=== PATIENT | male | born 1965 | race Caucasian/White ===

== ENCOUNTER 2017-02-16 08:00 | Inpatient (IN) | payer OTHER ==
--- NOTE | 2017-02-10 14:03 | HP ---
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: Yes: Peripheral Neuropathy Cardiovascular: Yes: CAD (POSITIVE STRESS TEST 2013), HTN, Hyperlipdemia Pulmonary: Yes: COPD Gastrointestinal: Yes: GERD Musculoskeletal: Yes: Osteoarthritis Endocrine: Yes: Diabetes Mellitus - Current Medications Current Medications: Home Medications Medication Instructions Recorded Divalproex [Depakote -] 250 mg PO BID 11/25/13 Gabapentin [Neurontin] 600 mg PO TID 11/25/13 Insuln Asp Prt/Insulin Aspart 25 unit SQ ACDIN 11/25/13 [Novolog Mix 70-30 Flexpen Syrn] Insuln Asp Prt/Insulin Aspart 40 unit SQ ACBK 11/25/13 [Novolog Mix 70-30 Flexpen Syrn] Quetiapine Fumarate [Seroquel -] 300 mg PO BID 11/25/13 Trazodone HCl [Desyrel -] 300 mg PO HS 11/25/13 Dexlansoprazole [Dexilant] 60 mg PO DAILY 02/04/17 Risperidone [Risperdal] 3 mg PO DAILY 02/04/17 Satellite Physical Exam - Physical Examination General Appearance: Well Nourished, Well Developed, Alert & Oriented x3 ENT: Clear Lung: Normal air movement Heart: Regular rate & rhythm Extremities: Other (left knee- + swelling, + ttp, decr rom, nvi xrays show severe tricompartmental djd) Neurological: Intact, Alert, Oriented Satellite Impression/Plan - Impression/Plan Impression: left knee djd Operative Procedure: left kevin tkr Date to be Performed: 02/16/17
[2017-02-16] MEDS ORDERED: TRANEXAMIC ACID 1000 MG/10 ML VIAL IVPUSH ONE (10:30)
[2017-02-16] MEDS ORDERED: CEFAZOLIN 1 GM/D5W 50 ML IVPB ONE (10:30)
[2017-02-16] MEDS ORDERED: GABAPENTIN 300 MG CAPSULE (FP) PO ONE (10:30)
[2017-02-16] MEDS ORDERED: CELECOXIB 200 MG CAPSULE PO ONE (10:30)
[2017-02-16] MEDS ORDERED: oxyCODONE HCL 10 MG SUSTAINED ACTING TABLET PO ONE (10:30)
[2017-02-16 11:17] VITALS: BMI 42.0
[2017-02-16] MEDS ORDERED: SODIUM CHLORIDE 0.9% P/F 10 ML VIAL IJ ONE (11:33)
[2017-02-16] MEDS ORDERED: BUPIVACAINE HCL/PF (5 MG/ML) 30 ML VIAL IJ ONE (11:33)
[2017-02-16] MEDS ORDERED: DEXAMETHASONE SOD PHOSPHATE/PF 10 MG/ML SDV ONE (11:33)
[2017-02-16] MEDS ORDERED: MIDAZOLAM HCL 2 MG/2 ML SINGLE DOSE VIAL ONE (11:33)
[2017-02-16] MEDS ORDERED: VANCOMYCIN 1,000 MG VIAL (RESTRICTED TO ID ONLY) ONE (12:19)
[2017-02-16] MEDS ORDERED: ceFAZolin SODIUM 1 GM VIAL ONE ×2 (12:19→13:42)
[2017-02-16] MEDS ORDERED: ONDANSETRON 4 MG/2 ML VIAL ONE (13:09)
[2017-02-16] MEDS ORDERED: TRANEXAMIC ACID 1000 MG/10 ML VIAL ONE (13:09)
[2017-02-16] MEDS ORDERED: DEXAMETHASONE SOD PHOSPHATE 4 MG/1 ML VIAL ONE (13:09)
[2017-02-16] MEDS ORDERED: PROPOFOL 20 ML ONE ×4 (13:37→15:41)
[2017-02-16] MEDS ORDERED: LABETALOL HCL 5 MG/1 ML (100MG/20 ML VIAL) ONE (14:15)
[2017-02-16] MEDS ORDERED: ONDANSETRON 4 MG/2 ML VIAL IVPUSH PRN (15:49)
--- NOTE | 2017-02-16 15:59 | OP ---
Operative Note - Note: Operative Date: 02/16/17 Pre-Operative Diagnosis: Left knee djd Operation: PANCHO left TKR Post-Operative Diagnosis: Same as Pre-op Surgeon: Richie Card Dry Heat Room Attendant: Jarek Aranda Anesthesiologist/POSTAL SUPERVISOR: Joel Crews Anesthesia: Spinal Estimated Blood Loss (mls): 150 Fluid Volume Replaced (mls): 1,000 Operative Report Dictated: Yes
[2017-02-16] MEDS ORDERED: ACETAMINOPHEN 325 MG TABLET (FP) PO SCH (16:00)
--- NOTE | 2017-02-16 16:00 | SURG ---
Surgery Field Service Rep Note Field Service Rep: Jarek Aranda PA-C Date of Service: 02/16/17 Diagnosis: Left knee djd Procedure: PANCHO left total knee replacement I was present for the entirety of the operative procedure. For further detail, please refer to operative report. Visit type - Case Type Case Type: Scheduled Admission - New patient This patient is new to me today: Yes Date on this admission: 02/16/17
[2017-02-16] MEDS ORDERED: ONDANSETRON 4 MG/2 ML VIAL IVPB PRN (16:01)
[2017-02-16] MEDS ORDERED: MAG HYDROX/AL HYDROX/SIMETH 30 ML UNIT-DOSE CUP PO PRN (16:01)
[2017-02-16] MEDS ORDERED: LACTATED RINGERS SOLUTION 1,000 ML IV SCH (16:15)
[2017-02-16] MEDS: HYDROmorphone HCL CARPU-JECT 1 MG/1 ML DISP.SYRIN ONE ×2 (16:23→16:28)
[2017-02-16] MEDS: ACETAMINOPHEN 1000 MG/100 ML VIAL (NON FORMULARY) IVPB ONE ×2 (16:40→17:23)
[2017-02-16] MEDS: KETOROLAC TROMETHAMINE 30 MG/1 ML VIAL IVPUSH ONE ×2 (16:45→17:23)
[2017-02-16] MEDS ORDERED: HYDROmorphone HCL CARPU-JECT 1 MG/1 ML DISP.SYRIN IVPUSH PRN (16:53)
[2017-02-16] MEDS: LACTATED RINGERS SOLUTION 1,000 ML IV SCH (17:21)
[2017-02-16] MEDS: INSULIN (NOVOLOG MIX 70/30) 100 UNITS/ML MDV SQ SCH (17:28)
[2017-02-16] MEDS: INSULIN SLIDING SCALE (NOVOLOG) 1 VIAL SQ SCH ×2 (17:28→22:34)
[2017-02-16] MEDS: oxyCODONE HCL 5 MG TABLET PO PRN (18:25)
[2017-02-16] MEDS ORDERED: traZODone HCL 150 MG TABLET PO SCH (22:00)
[2017-02-16] MEDS ORDERED: QUEtiapine FUMARATE 100 MG TABLET (FP) ONE (22:14)
[2017-02-16] MEDS: CELECOXIB 200 MG CAPSULE PO SCH (22:21)
[2017-02-16] MEDS: ASPIRIN 325 MG TABLET PO SCH (22:21)
[2017-02-16] MEDS: CEFAZOLIN 2 GM/D5W 50 ML IVPB SCH (22:21)
[2017-02-16] MEDS: DIVALPROEX SODIUM 250 MG TABLET E.C. (FP) PO SCH (22:22)
[2017-02-16] MEDS: GABAPENTIN 300 MG CAPSULE (FP) PO SCH (22:22)
[2017-02-16] MEDS: ASCORBIC ACID 500 MG TABLET (FP) PO SCH (22:23)
[2017-02-16] MEDS: SENNOSIDES/DOCUSATE COMBO (SENNA PLUS) TABLET (UD) PO SCH (22:23)
[2017-02-16] MEDS: QUEtiapine FUMARATE 300 MG TABLET PO SCH (22:23)
[2017-02-16] MEDS: ACETAMINOPHEN 325 MG TABLET (FP) PO SCH (22:24)
[2017-02-16] MEDS ORDERED: INSULIN (NOVOLOG) ASPART 100 UNITS/ML 10ML VIAL ONE (22:33)
[2017-02-17] MEDS: ACETAMINOPHEN 325 MG TABLET (FP) PO SCH ×4 (03:33→21:29)
[2017-02-17] MEDS: GABAPENTIN 300 MG CAPSULE (FP) PO SCH ×3 (06:30→21:10)
[2017-02-17] MEDS: CEFAZOLIN 2 GM/D5W 50 ML IVPB SCH (06:31)
[2017-02-17] MEDS: oxyCODONE HCL 5 MG TABLET PO PRN ×3 (06:31→20:13)
[2017-02-17] MEDS: INSULIN SLIDING SCALE (NOVOLOG) 1 VIAL SQ SCH ×4 (06:32→21:29)
[2017-02-17] MEDS: INSULIN (NOVOLOG MIX 70/30) 100 UNITS/ML MDV SQ SCH ×2 (06:33→16:07)
[2017-02-17 08:45] LABS: MCH 31.6 pg (25.7-33.7); MCHC 35.1 g/dl (32.0-35.9); MEAN CELL VOLUME 90.1 fl (80-96); MEAN PLT VOLUME 9.8 fl (7.5-11.1); PLATELET COUNT 155 K/MM3 (134-434); RDW 11.8 % (11.9-15.9); WHITE BLOOD COUNT 11.8 K/mm3 (4.0-10.8)
[2017-02-17 08:54] LABS: ANION GAP 5 (8-16); CALCIUM 8.4 mg/dl (8.4-10.2); CO2 31 mmol/L (22-28); GLUCOSE,RANDOM 230 mg/dl (74-106)
[2017-02-17] MEDS ORDERED: QUEtiapine FUMARATE 100 MG TABLET (FP) ONE (09:22)
[2017-02-17] MEDS: ASCORBIC ACID 500 MG TABLET (FP) PO SCH ×2 (09:27→21:11)
[2017-02-17] MEDS: MULTIVITAMINS (DAILY MVI) TABLET (FP) PO SCH (09:27)
[2017-02-17] MEDS: SENNOSIDES/DOCUSATE COMBO (SENNA PLUS) TABLET (UD) PO SCH ×2 (09:27→21:09)
[2017-02-17] MEDS: PANTOPRAZOLE 40 MG TABLET (FP) PO SCH (09:27)
[2017-02-17] MEDS: CELECOXIB 200 MG CAPSULE PO SCH ×2 (09:27→21:09)
[2017-02-17] MEDS: DIVALPROEX SODIUM 250 MG TABLET E.C. (FP) PO SCH ×2 (09:28→21:08)
[2017-02-17] MEDS: QUEtiapine FUMARATE 300 MG TABLET PO SCH (09:28)
[2017-02-17] MEDS: ASPIRIN 325 MG TABLET PO SCH ×2 (09:28→21:10)
[2017-02-17] MEDS ORDERED: PATIENT'S OWN MEDICATION (NON-FORMULARY) (Dexlansoprazole [Dexilant] 60 MG) PO SCH (10:00)
[2017-02-17] MEDS ORDERED: QUEtiapine FUMARATE 100 MG TABLET (FP) PO SCH (10:00)
[2017-02-17] MEDS ORDERED: risperiDONE 3 MG TABLET PO SCH (10:00)
--- NOTE | 2017-02-17 10:18 | PN ---
Progress Note (short form) - Note Progress Note: ANESTHESIOLOGY POSTOP: 51 yo male POD #1 s/p L TKA. Patient ambulating with walker. C/O pain sometimes 9/10. Patient gets adequate relief with medications. Tolerating PO. Continue current care. Encouraged patient to actively participate in PT and continue to use IS bedside.
--- NOTE | 2017-02-17 12:02 | OPR ---
AVSS COMFORTABLE AQUACEL DRESSING CLEAN AND DRY CALF SOFT AND NT NVI PROM 0-90 + ABILITY TO STRAIGHT LEG RAISE IMP: DOING WELL PLAN: PT, DC TOMORROW
[2017-02-17] MEDS ORDERED: INSULIN (NOVOLOG) ASPART 100 UNITS/ML 10ML VIAL ONE ×2 (16:00→21:15)
[2017-02-17] MEDS ORDERED: REFRIGERATED ANITBIOTICS ONE (16:02)
[2017-02-17] MEDS: LACTATED RINGERS SOLUTION 1,000 ML IV SCH (16:06)
[2017-02-17] MEDS: QUEtiapine FUMARATE 100 MG TABLET (FP) PO SCH (21:10)
[2017-02-17] MEDS ORDERED: traZODone HCL 50 MG TABLET (FP) PO SCH (22:00)
[2017-02-18] MEDS: oxyCODONE HCL 5 MG TABLET PO PRN ×4 (00:11→08:45)
[2017-02-18] MEDS: ACETAMINOPHEN 325 MG TABLET (FP) PO SCH ×2 (04:19→10:46)
[2017-02-18] MEDS: GABAPENTIN 300 MG CAPSULE (FP) PO SCH (06:05)
[2017-02-18] MEDS ORDERED: REFRIGERATED ANITBIOTICS ONE (06:10)
[2017-02-18] MEDS: INSULIN SLIDING SCALE (NOVOLOG) 1 VIAL SQ SCH (06:11)
[2017-02-18] MEDS: INSULIN (NOVOLOG MIX 70/30) 100 UNITS/ML MDV SQ SCH (06:11)
[2017-02-18 09:10] VITALS: BP 142/74; PULSE 102; TEMP 98.5
[2017-02-18 09:17] LABS: MCH 30.9 pg (25.7-33.7); MCHC 34.5 g/dl (32.0-35.9); MEAN CELL VOLUME 89.4 fl (80-96); MEAN PLT VOLUME 8.8 fl (7.5-11.1); PLATELET COUNT 154 K/MM3 (134-434); RDW 11.9 % (11.9-15.9); WHITE BLOOD COUNT 12.5 K/mm3 (4.0-10.8)
[2017-02-18] MEDS ORDERED: risperiDONE 1 MG TABLET (FP) PO SCH (10:00)
[2017-02-18] MEDS: DIVALPROEX SODIUM 250 MG TABLET E.C. (FP) PO SCH (10:44)
[2017-02-18] MEDS: CELECOXIB 200 MG CAPSULE PO SCH (10:44)
[2017-02-18] MEDS: ASPIRIN 325 MG TABLET PO SCH (10:44)
[2017-02-18] MEDS: QUEtiapine FUMARATE 100 MG TABLET (FP) PO SCH (10:45)
[2017-02-18] MEDS: MULTIVITAMINS (DAILY MVI) TABLET (FP) PO SCH (10:45)
[2017-02-18] MEDS: ASCORBIC ACID 500 MG TABLET (FP) PO SCH (10:45)
[2017-02-18] MEDS: SENNOSIDES/DOCUSATE COMBO (SENNA PLUS) TABLET (UD) PO SCH (10:45)
[2017-02-18] MEDS: PANTOPRAZOLE 40 MG TABLET (FP) PO SCH (10:45)
--- NOTE | 2017-02-18 10:50 | OP ---
DATE OF OPERATION: 02/16/2017 PREOPERATIVE DIAGNOSIS: Degenerative joint disease, left knee. POSTOPERATIVE DIAGNOSIS: Degenerative joint disease, left knee. PROCEDURE: Left total knee replacement with robotic-assisted navigation (MAKOplasty). SURGICAL ATTENDING: Richie Card MD SILO PAINTER: JOVITA Macias ANESTHESIA: Regional and spinal. CLOSURE: A cemented Triathlon knee system with a 5 femur with a small extension, a 6 tibia with a small extension, an 11-mm TS insert, and a 35 patella; No. 1 Vicryl fascia, 0 and 2-0 subcutaneous, and 3-0 Monocryl subcuticular, with skin glue for skin. ESTIMATED BLOOD LOSS: Negligible. TOURNIQUET TIME: Approximately 80 minutes. COMPLICATIONS: None. CONDITION: Recovery room in stable condition. DESCRIPTION OF OPERATIVE PROCEDURE: Patient was taken to the operating room on February 16, 2017. Spinal and regional anesthesia were administered by the anesthesiologist. IV Kefzol and TXA were administered prophylactically prior to the case. A well-padded pneumatic tourniquet was placed on the left proximal thigh. The left lower extremity was prepped and draped in the usual sterile fashion. The leg was exsanguinated with an Esmarch bandage. Tourniquet was inflated to 275 mmHg. A 12-to-15-cm longitudinal midline incision centered over the patella was incised. Hemostasis was achieved using Bovie cautery. Sharp dissection was carried down to the level of the extensor mechanism which was mediolaterally to perform the procedure. A medial parapatellar arthrotomy was then performed using a 10 blade. The patella was inverted. The knee was flexed up. Subperiosteal dissection was done in the anterior medial proximal tibia until the knee was able to be brought forward. This was facilitated by taking the menisci and anterior and posterior cruciate ligaments. Partial fat pad excision was performed as well. Checkpoints were malleted in both the femur and the tibia. Two bicortical pins were placed in the distal femur through the incision proximal to the knee, and 2 pins were placed through small stab incisions 1 handbreadth below the tibial tubercle and drilled into place, engaging the second cortex. To these, pins were fastened to the navigation arrays. The knee was then registered with the navigation device by center of rotation of the hip, medial and lateral malleoli, and multiple points on both the tibia and the femur. Confirmation of excellent registration was confirmed by "popping the bubbles." Osteophytes throughout the knee were debrided using the rongeur and the osteotomes. Gaps were then ascertained in both extension and flexion with varus and valgus stress. Due to taking a lot of the osteophytes medially, there was some looseness to the medial MCL. It was thus decided to use a TS implant, especially with the patient being very large. Small extensions were also decided to use on both the femur and the tibia. The box was made on the femur, and a hole was drilled in the tibia for placement of the short extension. Trial component was applied. A number 6 size 11 thickness polyethylene trial and baseplate were allowed to "find itself." They were then clipped into place. Confirmation of excellent rotation of the tibial component was confirmed using the navigation. This was clipped into place and marked for later use. The patella was calipered for thickness and then osteotomized to the appropriate level. A 35 lollipop was used to drill the lug holes in the patella, and a trial was applied. Knee was taken through a range of motion, found to go from full extension to full flexion with excellent tracking of the patella and good stability. The trial components were removed. The keel was made. The real components were then cemented in using modern instrumentation cement techniques with antibiotic cement. They were pressurized in extension. After the cement was hardened, the knee was thoroughly inspected to remove all excess cement. The real TS implant was then clipped into place. Range of motion, stability, and tracking was described earlier to be excellent throughout. Knee was pulse-antibiotic irrigated. Vancomycin powder was then placed, and the medial parapatellar arthrotomy was then closed using No. 1 Vicryl interrupted suture. Post closure, the knee was taken through a range of motion and found to have good tracking of the patella with no undue tension on the repair. The subcutaneous was post-antibiotic irrigated. The subcutaneous was closed with 0 and 2-0, and 3-0 Monocryl subcuticular with skin glue for skin, 4-0 undyed Vicryl for the pin site after it was post antibiotic irrigated. A sterile pressure dressing, followed by an Aquacel dressing and a Vargas dressing was applied. Tourniquet was deflated. Total tourniquet time was approximately 80 minutes. No complications. Estimated blood loss negligible. Janki PERRY/[id number]
--- NOTE | 2017-02-18 15:19 | PATH ---
Surgical Pathology Report Patient Name: JAYNE HERNADEZ Med. Rec. #: [id number] /Age/Gender: 1965 (Age: 51) / M Account: [id number] Location: [facility] MED-SURG Taken: 02/16/2017 Received: 02/16/2017 Reported: 02/18/2017 Physicians: Richie Card M.D. Specimen(s) Received LEFT KNEE BONES Clinical History Left knee osteoarthritis Final Diagnosis BONE AND SOFT TISSUE, LEFT KNEE, REPLACEMENT: DEGENERATIVE JOINT DISEASE. Electronically Signed Anil Mcwilliams M.D. Gross Description Received in formalin labeled "left knee bones," is a 14.5 x 13.0 x 2.0 cm aggregate of multiple tran, irregular portions of bone and soft tissue. The tibial plateau measures 8.0 x 5.6 x 1.8 cm. There are no areas of eburnation identified. The articular surfaces are tran-yellow and diffusely granular. The underlying trabecular bone is yellow and hard. Nursing Service Administrator sections are submitted in one cassette, following decalcification. 02/17/201702/17/2017
== END 2017-02-18 11:40 | disposition home health service (06) | DRG 470 ==
LOC: FM/S 10:09 → UNDOADMIN 10:09
PROVIDERS: ADMIT Orthopaedic Surgery; ATTEND Orthopaedic Surgery
PROC: 8E0Y0CZ Robotic Assisted Procedure of Lower Extremity, Open Approach (ICD-10-PCS; 2017-02-16)
PROC: 0SRD0J9 Replacement of Left Knee Joint with Synthetic Substitute, Cemented, Open Approach (ICD-10-PCS; principal; 2017-02-16 14:01)
DX: M17.12 Unilateral primary osteoarthritis, left knee (principal); I25.10 Atherosclerotic heart disease of native coronary artery without angina pectoris; I10 Essential (primary) hypertension; E78.5 Hyperlipidemia, unspecified; E11.42 Type 2 diabetes mellitus with diabetic polyneuropathy; J44.9 Chronic obstructive pulmonary disease, unspecified; K21.9 Gastro-esophageal reflux disease without esophagitis
CPT/HCPCS: 36415; 73560-TC-LT; 80048; 85027; 88304-TC; 88311-TC; 94760; 97116-GP; 97162-GP; J2794

== ENCOUNTER 2017-02-19 21:38 | Emergency (ER) | payer OTHER ==
--- NOTE | 2017-02-19 22:01 | PDOC ---
History of Present Illness - General Stated Complaint: OVERDOSE Time Seen by Provider: 02/19/17 22:00 - History of Present Illness Initial Comments: 51 year old male with PMH diabetes, BPD, HTN, and s/p recent total knee replacement yesterday presenting for potential percocet overdose. Patient was home earlier today when his mother noticed he was slightly more somnolent than usual. He had taken 12 percocets from 13:00 on 02/18/17 20:00 at 02/19/17. The mother stated that he was responsive but very sleepy. The patient denies any issues. Denies constipation, SOB, chest pain, nausea, vomiting, or any other symptoms. He was somnolent but arrousable during our interview. He hasn't taken any other pain medications and states that he took so many percocets because the label indicated he could take up to 6 per day. 02/19/17 23:11 Past History - Past Medical History Allergies/Adverse Reactions: Allergies Allergy/AdvReac Type Severity Reaction Status Date / Time haloperidol [From Haldol] Allergy Severe MUSCLE Verified 02/19/17 23:03 SPASMS haloperidol lactate AdvReac Severe MUSCLE Verified 02/19/17 23:03 [From Haldol] SPASMS Home Medications: Ambulatory Orders Divalproex [Depakote -] 250 mg PO BID 11/25/13 Gabapentin [Neurontin] 600 mg PO TID 11/25/13 Insuln Asp Prt/Insulin Aspart [Novolog Mix 70-30 Flexpen Syrn] 25 unit SQ ACDIN 11/25/13 Insuln Asp Prt/Insulin Aspart [Novolog Mix 70-30 Flexpen Syrn] 40 unit SQ ACBK 11/25/13 Quetiapine Fumarate [Seroquel -] 300 mg PO BID 11/25/13 Trazodone HCl [Desyrel -] 300 mg PO HS 11/25/13 Dexlansoprazole [Dexilant] 60 mg PO DAILY 02/04/17 Risperidone [Risperdal] 3 mg PO DAILY 02/04/17 Oxycodone HCl/Acetaminophen [Percocet 5-325 mg Tablet -] 1 - 2 tab PO Q6H #60 tab MDD 6 02/17/17 Anemia: No Asthma: No Cancer: Yes (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.) Cardiac Disorders: No CVA: No COPD: No CHF: No Dementia: No Diabetes: Yes (IDDM OVER 10 YEARS) GI Disorders: No Disorders: No HTN: No Hypercholesterolemia: No Liver Disease: No Psychiatric Problems: Yes (BIPOLAR) Suicide Attempt (Hx): No Seizures: No Thyroid Disease: No - Surgical History Abdominal Surgery: No Appendectomy: Yes Cardiac Surgery: No Cholecystectomy: No Lung Surgery: No Neurologic Surgery: No Orthopedic Surgery: No - Immunization History Immunization Up to Date: Yes - Psycho/Social/Smoking Cessation Hx Anxiety: Yes Suicidal Ideation: No Smoking History: Current some day smoker Have you smoked in the past 12 months: Yes Number of Cigarettes Smoked Daily: 1 Cigars Per Day: 1 'Breaking Loose' booklet given: 02/28/15 Hx Alcohol Use: Yes (OCCASIONALLY) Drug/Substance Use Hx: No Substance Use Type: Alcohol Hx Substance Use Treatment: No Review of Systems - Review of Systems Constitutional: No: Chills, Diaphoresis, Fever, Loss of Appetite, Malaise HEENTM: No: Blurred Vision, Tearing, Recent change in vision Respiratory: No: Cough, Shortness of Breath, SOB with Exertion Cardiac (ROS): No: Chest Pain, Edema, Irregular Heart Rate ABD/GI: No: Constipated, Diarrhea, Nausea, Poor Appetite, Poor Fluid Intake : No: Burning, Dysuria, Discharge Musculoskeletal: Yes: Joint Pain, Joint Swelling, Joint Stiffness Neurological: No: Headache, Numbness, Paresthesia *Physical Exam - Physical Exam General Appearance: Yes: Appropriately Dressed, Other (somnolent but arrousable) . No: Apparent Distress, Disheveled HEENT: positive: EOMI, JERRELL, Normal ENT Inspection Neck: positive: Normal Thyroid, Supple. negative: Tender, Rigid Respiratory/Chest: positive: Lungs Clear, Normal Breath Sounds, Respiratory Distress, Accessory Muscle Use, Other (No signs of respiratory depression or concerning secretions.). negative: Chest Tender Cardiovascular: positive: Regular Rhythm, Regular Rate, S1, S2. negative: Edema , JVD, Murmur Gastrointestinal/Abdominal: positive: Normal Bowel Sounds, Flat, Soft. negative : Tender, Organomegaly Musculoskeletal: positive: Other Extremity: positive: Other (Clean, dry, and intact site of knee arthroplasty.) Integumentary: positive: Normal Color, Dry, Warm. negative: Cyanotic Neurologic: positive: Fully Oriented, Alert, Other (Somnolent but arrousable) Medical Decision Making - Medical Decision Making 51 year old diabetic s/p recent TKR with concern for prescription percocet overdose. He has taken 3900 MG of acetaminophen over 28 hours without any episode of supra-therapeutic single dosage. His last dose was at 20:00 on . He is somnolent but arrousable and not exhibiting signs of respiratory depression. Per conversation with poison control at 23:00, it is not likely that he would have a Tylenol or percocet overdose given his lack of supratherapaeutic ingestion and less than 3G daily ingestion. They suggested sending tylenol level if we were concerned and/or cmp but it is not indicated given the tylenol dosage level. Sent CMP, CBC, and Tylenol level. 02/20/17 00:00 Labs pending and patient signed out to Dr. Baca in stable condition. *DC/Admit/Observation/Transfer Diagnosis at time of Disposition: Somnolence - Discharge Dispostion Disposition: HOME Condition at time of disposition: Improved - Referrals Referrals: Wes Worthy MD [Primary Care Provider] -
[2017-02-19 23:03] VITALS: BMI 45.6
--- NOTE | 2017-02-19 23:13 | PDOC ---
Attending Attestation - Resident Resident Name: Esthela Garduno - ED Attending Attestation I have performed the following: I have examined & evaluated the patient, The case was reviewed & discussed with the resident, I agree w/resident's findings & plan, Exceptions are as noted - HPI HPI: 02/19/17 23:11 51 year old male with past medical history of hypertension, diabetes, diabetic neuropathy, lymphoma, bipolar disorder, degenerative disc disease status post total left knee replacement yesterday by Dr. Card presents with potential overdose. The patient was having pain after his knee surgery yesterday. Since 1 PM yesterday, the patient has taken 12 tablets of Percocet. Patient is no complaints but has been drowsy. The patient's mother was concerned and brought the patient the ED. - Physicial Exam PE: 02/19/17 23:12 GENERAL: Awake, alert, and fully oriented, in no acute distress. HEAD: No signs of trauma EYES: PERRLA, EOMI, sclera anicteric, conjunctiva clear ENT: Auricles normal inspection, hearing grossly normal, nares patent, oropharynx clear without exudates. NECK: Normal ROM, supple, no lymphadenopathy, JVD, or masses LUNGS: Breath sounds equal, clear to auscultation bilaterally. No wheezes, and no crackles HEART: Regular rate and rhythm, normal S1 and S2, no murmurs, rubs or gallops ABDOMEN: Soft, nontender, normoactive bowel sounds. No guarding, no rebound. No masses EXTREMITIES: Normal range of motion, no edema. No clubbing or cyanosis. No cords, erythema, or tenderness LLE: s/p left knee replacement. Bandage overlying with no erythema or drainage. NEUROLOGICAL: Cranial nerves II through XII grossly intact. Normal speech, normal gait SKIN: Warm, Dry, normal turgor, no rashes or lesions noted. - Medical Decision Making 02/19/17 23:13 The patient appears mildly drowsy but alert and communicative. Unlikely to have OD on tylenol. No concerns for airway pathology. Poison Control Center contacted. Stated to observe the patient and if LFTs unremarkable, pt can be d/c'd. Labs and reassess. 02/20/17 01:16 CBC, BMP 02/19/17 23:15 02/19/17 23:15 CMP Sodium 138 mmol/L (136-145) 02/19/17 23:15 Potassium 3.7 mmol/L (3.5-5.1) 02/19/17 23:15 Chloride 97 mmol/L (98-107) L 02/19/17 23:15 Carbon Dioxide 33 mmol/L (21-32) H 02/19/17 23:15 Anion Gap 8 (8-16) 02/19/17 23:15 BUN 11 mg/dL (7-18) 02/19/17 23:15 Creatinine 0.9 mg/dL (0.7-1.3) 02/19/17 23:15 Creat Clearance w eGFR > 60 (>60) 02/19/17 23:15 POC Glucometer 199.68116 UNITS (()) 02/19/17 22:38 Random Glucose 202 mg/dL (74-106) H 02/19/17 23:15 Calcium 8.7 mg/dL (8.5-10.1) 02/19/17 23:15 Total Bilirubin 0.7 mg/dL (0.2-1.0) D 02/19/17 23:15 AST 23 U/L (15-37) D 02/19/17 23:15 ALT 32 U/L (12-78) D 02/19/17 23:15 Alkaline Phosphatase 46 U/L (45-117) D 02/19/17 23:15 Total Protein 7.0 g/dl (6.4-8.2) 02/19/17 23:15 Albumin 3.1 g/dl (3.4-5.0) L 02/19/17 23:15 Acetaminophen level undetectable. Pt cleared for D/c. Heart Score/ECG Review #1 ECG reviewed & interpreted by me at: 00:55 02/20/17 00:57 NSR 97, RBBB, LAFB, no std/carlos, QTC 480 msec, +LVH
--- NOTE | 2017-02-20 00:08 | PDOC ---
*Physical Exam - Vital Signs Last Vital Signs Temp Pulse Resp BP Pulse Ox 97.8 F 94 H 22 142/86 98 02/19/17 21:45 02/19/17 21:45 02/19/17 21:45 02/19/17 21:45 02/19/17 21:45 ED Treatment Course - LABORATORY CBC & Chemistry Diagram: 02/19/17 23:15 02/19/17 23:15 - ADDITIONAL ORDERS Additional order review: Laboratory Results 02/19/17 22:38 POC Glucometer 199.51522 02/19/17 22:38 POC Glucometer 199.32931 Medical Decision Making - Medical Decision Making 02/20/17 00:[address] Garduno. Plan to watch tylenol levels and watch for levels above 10. Will consider NAC if greater than 10 or ALT/AST elevated; otherwise will monitor for another 2 hours and discharge to home. 02/20/17 01:20 Patient's levels in safe range. Will discharge to home. 02/20/17 01:31 *DC/Admit/Observation/Transfer Diagnosis at time of Disposition: Somnolence - Discharge Dispostion Disposition: HOME Condition at time of disposition: Improved - Referrals Referrals: Wes Worthy MD [Primary Care Provider] - - Patient Instructions - Post Discharge Activity - Attestations Physician Attestion: 02/20/17 01:21 I, Dr. Memo Bolden, attest that this document has been prepared under my direction and personally reviewed by me in its entirety. I further attest, that it accurately reflects all work, treatment, procedures and medical decision -making performed by me.
[2017-02-20 00:12] LABS: BASOPHIL 0.5 % (0-2.0); EOSINOPHIL 0.7 % (0-4.5); MCH 30.3 pg (25.7-33.7); MCHC 33.4 g/dl (32.0-35.9); MEAN CELL VOLUME 90.7 fl (80-96); MEAN PLT VOLUME 9.9 fl (7.5-11.1); NEUTROPHILS 70.5 % (42.8-82.8); PLATELET COUNT 141 K/MM3 (134-434); RDW 12.9 % (11.9-15.9); WHITE BLOOD COUNT 7.5 K/mm3 (4.0-10.0)
[2017-02-20 00:31] LABS: URINE MARIJUANA THC POSITIVE ng/ml (CUTOFF=50)
[2017-02-20 00:44] LABS: ALBUMIN 3.1 g/dl (3.4-5.0); ANION GAP 8 (8-16); CALCIUM 8.7 mg/dL (8.5-10.1); CO2 33 mmol/L (21-32); CREATININE 0.9 mg/dL (0.7-1.3); GLUCOSE,RANDOM 202 mg/dL (74-106); SGOT/AST 23 U/L (15-37); SGPT/ALT 32 U/L (12-78)
[2017-02-20 00:46] LABS: ALK PHOS 46 U/L (45-117); BILIRUBIN,TOTAL 0.7 mg/dL (0.2-1.0)
[2017-02-20 02:49] VITALS: BP 121/78; PULSE 88; TEMP 98.1
--- NOTE | 2017-02-22 09:28 | EKG ---
Test Reason : Blood Pressure : / mmHG Vent. 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
== END 2017-02-20 03:08 | disposition home or self-care (01) ==
LOC: JER 21:38
DX: T39.1X4A Poisoning by 4-Aminophenol derivatives, undetermined, initial encounter (principal); R40.0 Somnolence; Y92.018 Other place in single-family (private) house as the place of occurrence of the external cause; E10.40 Type 1 diabetes mellitus with diabetic neuropathy, unspecified; Z79.4 Long term (current) use of insulin; F31.9 Bipolar disorder, unspecified; I10 Essential (primary) hypertension; Z96.652 Presence of left artificial knee joint
CPT/HCPCS: 36415; 80053; 80307; 85025; 93005; 93010; 99284-25

== ENCOUNTER 2017-10-27 06:25 | Inpatient (IN) | payer OTHER ==
[2017-10-27 06:49] VITALS: BMI 40.1
[2017-10-27 07:20] LABS: BASO % 0.3 % (0-2.0); EOS % 0.5 % (0-4.5); HEMATOCRIT 42.3 % (35.4-49); HEMOGLOBIN 14.5 GM/dL (11.7-16.9); LYMPH % 16.5 % (8-40); MCH 30.3 pg (25.7-33.7); MCHC 34.2 g/dl (32.0-35.9); MEAN CELL VOLUME 88.5 fl (80-96); MONO % 6.1 % (3.8-10.2); NEUT % 76.6 % (42.8-82.8); PLATELET COUNT 179 K/MM3 (134-434); RBC 4.78 M/mm3 (4.00-5.60); RDW 12.8 % (11.9-15.9)
[2017-10-27 07:30] LABS: INR 1.14 (0.82-1.09); PROTHROMBIN TIME (PATIENT) 12.9 SEC (9.98-11.88)
--- NOTE | 2017-10-27 07:37 | PDOC ---
History of Present Illness <Terrance Ledbetter - Last Filed: 10/27/17 10:29> - General History Source: Patient Exam Limitations: No Limitations - History of Present Illness Initial Comments: 10/27/17 08:30 The patient is a 51 year old male with a significant PMH of obesity, diabetes, HTN, and bipolar disorder who presents to the emergency department with generalized weakness and right sided rib pain s/p multiple falls since approximately 3AM this morning. He describes his rib pain as a constant, severe sensation that is worsened by movement.The patient reports waking up to smoke a cigar and feeling generally weak, after which he fell and hit his head and the right side of his chest. There is questionable LOC. The patient reports falling 2 more times prior to arrival, prompting his visit. The patients last known normal was at about 10:30PM last night. The patient denies shortness of breath, headache and dizziness. Denies fever, nausea, vomit, diarrhea and constipation. Denies dysuria, frequency, urgency and hematuria. Allergies: Haloperidol, Haloperidol lactate. Past surgical history: Total knee replacement surgery. Appendectomy. Social history: Current someday smoker. Occasional alcohol use. No reported drug use. PCP: Dr. 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.) Cardiac Disorders: No CVA: No COPD: No CHF: No Dementia: No Diabetes: Yes (IDDM OVER 10 YEARS) GI Disorders: No Disorders: No HTN: No Hypercholesterolemia: No Liver Disease: No Psychiatric Problems: Yes (BIPOLAR) Seizures: No Thyroid Disease: No - Surgical History Abdominal Surgery: No Appendectomy: Yes Cardiac Surgery: No Cholecystectomy: No Lung Surgery: No Neurologic Surgery: No Orthopedic Surgery: No - Immunization History Immunization Up to Date: Yes - Suicide/Smoking/Psychosocial Hx Smoking History: Never smoked Have you smoked in the past 12 months: No Number of Cigarettes Smoked Daily: 1 Cigars Per Day: 1 Information on smoking cessation initiated: No 'Breaking Loose' booklet given: 02/28/15 Hx Alcohol Use: No Drug/Substance Use Hx: No Substance Use Type: Alcohol Hx Substance Use Treatment: No <Terrance Ledbetter - Last Filed: 10/27/17 10:29> <Daniele Sharpe - Last Filed: 10/27/17 11:31> - Past Medical History Allergies/Adverse Reactions: Allergies Allergy/AdvReac Type Severity Reaction Status Date / Time haloperidol [From Haldol] Allergy Severe MUSCLE Verified 10/27/17 06:44 SPASMS haloperidol lactate AdvReac Severe MUSCLE Verified 10/27/17 06:44 [From Haldol] SPASMS Home Medications: Ambulatory Orders Divalproex [Depakote -] 250 mg PO BID 11/25/13 Gabapentin [Neurontin] 600 mg PO TID 11/25/13 Insuln Asp Prt/Insulin Aspart [Novolog Mix 70-30 Flexpen Syrn] 25 unit SQ ACDIN 11/25/13 Insuln Asp Prt/Insulin Aspart [Novolog Mix 70-30 Flexpen Syrn] 40 unit SQ ACBK 11/25/13 Quetiapine Fumarate [Seroquel -] 300 mg PO BID 11/25/13 Trazodone HCl [Desyrel -] 300 mg PO HS 11/25/13 Dexlansoprazole [Dexilant] 60 mg PO DAILY 02/04/17 Risperidone [Risperdal] 3 mg PO DAILY 02/04/17 Oxycodone HCl/Acetaminophen [Percocet 5-325 mg Tablet -] 1 - 2 tab PO Q6H #60 tab MDD 6 02/17/17 Review of Systems - Review of Systems Able to Perform ROS?: Yes Comments:: 10/27/17 08:31 GENERAL/CONSTITUTIONAL: (+) Generalized weakness. (+) Chills. No fever HEAD, EYES, EARS, NOSE AND THROAT: No change in vision. No ear pain or discharge. No sore throat. CARDIOVASCULAR: No chest pain or shortness of breath. RESPIRATORY: No cough, wheezing, or hemoptysis. GASTROINTESTINAL: No nausea, vomiting, diarrhea or constipation. GENITOURINARY: No dysuria, frequency, or change in urination. MUSCULOSKELETAL: (+) Right sided rib cage pain. No joint pain. No neck pain. SKIN: No rash NEUROLOGIC: (+) Questionable LOC. No headache or vertigo. ENDOCRINE: No increased thirst. No abnormal weight change. HEMATOLOGIC/LYMPHATIC: No anemia, easy bleeding, or history of blood clots. ALLERGIC/IMMUNOLOGIC: No hives or skin allergy. <Daniele Sharpe - Last Filed: 10/27/17 11:31> *Physical Exam - Vital Signs Last Vital Signs Temp Pulse Resp BP Pulse Ox 98.1 F 102 H 18 90/63 93 L 10/27/17 06:44 10/27/17 06:44 10/27/17 06:44 10/27/17 06:44 10/27/17 06:44 - Physical Exam Comments: 10/27/17 08:59 Patient was seen and evaluated 7 AM. On initial evaluation, patient is awake and alert, morbidly obese, wtih poor hygene; hypotensive, hopoxemic on RA, in mild distress; EXAMINATION HEAD: Normocephalic; atraumatic EYES: PERRL; EOM intact ENMT: External appears normal; normal oropharynx NECK: Supple; non-tender; no carotid bruits CARD: Normal S1, S2; no murmurs, rubs, or gallops RESP: Normal chest excursion with respiration; breath sounds clear and equal bilaterally; + subcutaneous emphysema appreciated on the right with bony crepitus at 5th rib ABD: Soft, non-distended; non-tender; no palpable organomegaly, no palpable hernias EXT: Normal passive ROM in all four extremities; non-tender to palpation; distal pulses intact SKIN: Warm, dry, no rash NEURO: Cranial nerves II through XII are grossly intact; right upper extremity/ left upper extremity: 5/5; left lower extremity: 4/5; right lower extremity: 3/5 ; babinsky positive on the right; <Terrance Ledbetter - Last Filed: 10/27/17 10:29> - Vital Signs Last Vital Signs Temp Pulse Resp BP Pulse Ox 98.1 F 102 H 18 90/63 93 L 10/27/17 06:44 10/27/17 06:44 10/27/17 06:44 10/27/17 06:44 10/27/17 06:44 <Daniele Sharpe - Last Filed: 10/27/17 11:31> NIH Stroke Scale - Last Known Well Date/Time & Onset Date Last Known Well: 10/26/17 Time Last Known Well: 10:30 - Initial Evaluation Level of consciousness: Not alert, but arousable with minimal stimulation Ask patient the month and their age: Answers both correctly Ask patient to open & close eyes; make fist and let go: Obeys both correctly Best gaze (horizontal eye movement): Normal Visual field testing: No visual field loss Facial paresis (Show teeth/raise eyebrows/close eyes tight): Normal symmetrical movement Motor Function: Left Arm: Normal Motor Function: Right Arm: Normal (extends arm 90 (or 45) degrees for 10 seconds without drift Motor Function: Left Leg: Drift Motor Function: Right Leg: Some effort against gravity Limb Ataxia: No ataxia Sensory(Use pinprick test arms,legs,trunk,face/side to side): Normal Best language (Describe picture, name items, read sentences): No Aphasia Dysarthria (read several words): Normal articulation Extinction and Inattention: No abnormality - Total Score NIH Stroke Scale Score: 4 <Terrance Ledbetter - Last Filed: 10/27/17 10:29> Heart Score/ECG Review #1 10/27/17 11:31 Vent rate 89 bpm Normal sinus rhythm Right bundle branch block Bifascicular block Voltage criteria for left ventricular hypertrophy Cannot rule out septal infarct, age undetermined Abnormal ECG <Daniele Sharpe - Last Filed: 10/27/17 11:31> Critical Care Time/MDM Note - Medical Decision Making Note: 10/27/17 09:03 Patient is a morbidly obese 51-year-old male with history of diabetes, bipolar disorder who presented to the ED after several falls earlier in the night. Patient reported that he was at his baseline state of health last at 10:30 pm on the night prior to arrival. on initial eval, pt was hypotensive and hypoxemic, improving after fluid rescus of 1500ml of NS and supplemental O2 at 4L/min via NC. physical eval reveals mild RLE weakness on isometric testing, bony crepitus and subq emphysema on the eval of right chest wall. ct of head shows no evidence of acute pathology. ct of cervical spine shows no fx/ dislocation. pt is not a tpa candidate due to unlknown onset of sxs and cta of brain was not obtained due to elevated cre c/w cronic venous insuff. case was discussed with Dr. Ceballos of neurology. he agrees with plan of care. will administer Aspirin-325mg, Lipitor. case disussed with Dr. Lyon of IR. Ptx is too small for chest tube at this moment. will monitor. will admit to icu. <Terrance Ledbetter - Last Filed: 10/27/17 10:29> - Medical Decision Making Note: 10/27/17 07:[address] Ceballos at 7:45, patient is not a TPA candidate. 10/27/17 08:04 CT head negative for traumatic injury. CT spine negative for fracture or dislocation. Right pneumothorax identified. CT chest ordered. BUN & Creatinine elevated, unable to perform CTA. 10/27/17 08:[address] Ceballos at 8:05 to update. 10/27/17 10:[address] Lenz (CT Surgery). 10/27/17 10:[address] Cantor who will admit this patient. 10/27/17 08:31 Documentation prepared by Daniele Sharpe, acting as medical housekeeper for Terrance Ledbetter MD. <Daniele Sharep - Last Filed: 10/27/17 11:31> Discharge Disposition - Discharge Dispostion Last Admission D/C Date: 02/18/17 Admit: Yes <Terrance Ledbetter - Last Filed: 10/27/17 10:29> <Daniele Sharpe - Last Filed: 10/27/17 11:31> - Diagnosis Acute pneumothorax CVA (cerebrovascular accident) Qualifiers: CVA mechanism: unspecified Qualified Code(s): I63.9 - Cerebral infarction, unspecified Ribs, multiple fractures Qualifiers: Encounter type: initial encounter Fracture type: closed Laterality: right Qualified Code(s): S22.41XA - Multiple fractures of ribs, right side, initial encounter for closed fracture - Discharge Dispostion Condition at time of disposition: Critical
[2017-10-27 07:40] LABS: ALBUMIN 3.7 g/dl (3.4-5.0); ANION GAP 8 (8-16); BILIRUBIN,TOTAL 0.6 mg/dL (0.2-1.0); BLOOD UREA NITROGEN 22 mg/dL (7-18); CALCIUM 8.2 mg/dL (8.5-10.1); CHLORIDE 102 mmol/L (98-107); CO2 25 mmol/L (21-32); GLUCOSE,RANDOM 243 mg/dL (74-106); POTASSIUM 4.4 mmol/L (3.5-5.1); SGOT/AST 47 U/L (15-37); SGPT/ALT 72 U/L (12-78); SODIUM 135 mmol/L (136-145); TOT PROT 6.9 g/dl (6.4-8.2)
[2017-10-27 07:43] LABS: ALK PHOS 47 U/L (45-117)
[2017-10-27 08:12] LABS: CHOLESTEROL 133 mg/dL (50-200); HDL CHOLESTEROL 34 mg/dL (40-60); LDL CHOLESTEROL (ONLY SJRH) 83 mg/dL (5-100); TRIGLYCERIDES 123 mg/dL (35-160)
[2017-10-27] MEDS ORDERED: ATORVASTATIN CA 80 MG TABLET (FP) PO ONE (10:01)
[2017-10-27] MEDS ORDERED: ASPIRIN 325 MG TABLET PO ONE (10:01)
[2017-10-27] MEDS ORDERED: ATORVASTATIN CA 80 MG TABLET (FP) ONE (10:40)
[2017-10-27] MEDS ORDERED: ASPIRIN 325 MG TABLET ONE (10:40)
--- NOTE | 2017-10-27 10:50 | EKG ---
Test Reason : Blood Pressure : / mmHG Vent. Rate : 089 BPM Atrial Rate : 089 BPM P-R Int : 150 ms QRS Dur : 128 ms QT Int : 396 ms P-R-T Axes : 051 -64 045 degrees QTc Int : 481 ms NORMAL SINUS RHYTHM RIGHT BUNDLE BRANCH BLOCK LEFT ANTERIOR FASCICULAR BLOCK BIFASCICULAR BLOCK VOLTAGE CRITERIA FOR LEFT VENTRICULAR HYPERTROPHY CANNOT RULE OUT SEPTAL INFARCT (CITED ON OR BEFORE 01-MAR-2015) ABNORMAL ECG WHEN COMPARED WITH ECG OF 20-FEB-2017 00:52, QUESTIONABLE CHANGE IN INITIAL FORCES OF SEPTAL LEADS Confirmed by MEHUL LYONS MD ([id number]) on 10/27/2017 10:50:26 AM Referred By: Confirmed By:MHEUL LYONS MD
--- NOTE | 2017-10-27 12:54 | CONSULT ---
Consult Consult Specialty:: PULMONARY Referred by:: Dr. Ledbetter Reason for Consultation:: ICU eval - History of Present Illness Chief Complaint: fall History of Present Illness: 51yo male with h/o HTN, DM, morbid obesity, bipolar disorder who presents s/p fall at 3AM this AM. He woke up and went outside to smoke a cigar when he states his right leg "gave out" and fell on to his right side on the concrete as well as his head. Reports right sided rib pain, pain with inspiration. No fevers or chills. Then reports falling 2 more times. He does take narcotics and trazadone at night. CT head unremarkable aside from some superficial swelling but CT chest showing right sided rib fractures and small right sided pneumothorax. - History Source History Provided By: Patient Limitations to Obtaining History: Clinical Condition - Past Medical History INTENSIVE CARE UNIT REGISTERED NURSE: Yes: Peripheral Neuropathy Cardio/Vascular: Yes: CAD (POSITIVE STRESS TEST 2013), HTN, Hyperlipdemia Pulmonary: Yes: COPD Gastrointestinal: Yes: GERD Psych: Yes: Bipolar Musculoskeletal: Yes: Osteoarthritis Endocrine: Yes: Diabetes Mellitus - Alcohol/Substance Use Hx Alcohol Use: No - Smoking History Smoking history: Never smoked Have you smoked in the past 12 months: No Aproximately how many cigarettes per day: 1 - Social History Usual Living Arrangement: Other (and with cousin) ADL: Independent Occupation: DISABLED History of Recent Travel: No Home Medications - Allergies Allergies/Adverse Reactions: Allergies Allergy/AdvReac Type Severity Reaction Status Date / Time haloperidol [From Haldol] Allergy Severe MUSCLE Verified 10/27/17 06:44 SPASMS haloperidol lactate AdvReac Severe MUSCLE Verified 10/27/17 06:44 [From Haldol] SPASMS - Home Medications Home Medications: Ambulatory Orders Divalproex [Depakote -] 250 mg PO BID 11/25/13 Gabapentin [Neurontin] 600 mg PO TID 11/25/13 Insuln Asp Prt/Insulin Aspart [Novolog Mix 70-30 Flexpen Syrn] 25 unit SQ ACDIN 11/25/13 Insuln Asp Prt/Insulin Aspart [Novolog Mix 70-30 Flexpen Syrn] 40 unit SQ ACBK 11/25/13 Quetiapine Fumarate [Seroquel -] 300 mg PO BID 11/25/13 Trazodone HCl [Desyrel -] 300 mg PO HS 11/25/13 Dexlansoprazole [Dexilant] 60 mg PO DAILY 02/04/17 Risperidone [Risperdal] 3 mg PO DAILY 02/04/17 Oxycodone HCl/Acetaminophen [Percocet 5-325 mg Tablet -] 1 - 2 tab PO Q6H #60 tab MDD 6 02/17/17 Family Disease History - Family Disease History Family Disease History: CA: Father, Mother Review of Systems - Review of Systems Constitutional: reports: Weakness. denies: Chills, Fever Eyes: denies: Recent Change in Vision HENT: denies: Throat Pain, Toothache Neck: denies: Swollen Glands, Tenderness Cardiovascular: reports: Chest Pain. denies: Edema, Palpitations, Shortness of Breath Respiratory: denies: Cough, Hemoptysis, Wheezing Gastrointestinal: denies: Abdominal Pain, Nausea, Vomiting Genitourinary: denies: Dysuria, Hematuria Neurological: denies: Dizziness, Headache Physical Exam Vital Signs: Vital Signs Temperature 98.1 F 10/27/17 06:44 Pulse Rate 86 10/27/17 08:28 Respiratory Rate 24 10/27/17 08:28 Blood Pressure 114/81 10/27/17 08:28 O2 Sat by Pulse Oximetry (%) 100 10/27/17 10:57 Constitutional: Yes: Anxious, Mild Distress Eyes: Yes: Conjunctiva Clear, EOM Intact HENT: Yes: Atraumatic, Normocephalic Neck: Yes: Supple, Trachea Midline Cardiovascular: Yes: Regular Rate and Rhythm Respiratory: Yes: Diminished (distant breath sounds) Gastrointestinal: Yes: Normal Bowel Sounds, Soft. No: Tenderness Edema: No Labs: CBC, BMP 10/27/17 07:01 10/27/17 07:01 Imaging - Results Chest X-ray: Report Reviewed, Image Reviewed Cat Scan: Report Reviewed, Image Reviewed (small right sided pneumothorax) Problem List - Problems (1) Acute pneumothorax Code(s): J93.83 - OTHER PNEUMOTHORAX (2) Fall Code(s): W19.XXXA - UNSPECIFIED FALL, INITIAL ENCOUNTER (3) Hypertension Code(s): I10 - ESSENTIAL (PRIMARY) HYPERTENSION (4) Diabetes Code(s): E11.9 - TYPE 2 DIABETES MELLITUS WITHOUT COMPLICATIONS (5) Bipolar disorder Code(s): F31.9 - BIPOLAR DISORDER, UNSPECIFIED (6) Ribs, multiple fractures Code(s): S22.49XA - MULTIPLE FRACTURES OF RIBS, UNSP SIDE, INIT FOR CLOS FX Qualifiers: Encounter type: initial encounter Fracture type: closed Laterality: right Qualified Code(s): S22.41XA - Multiple fractures of ribs, right side, initial encounter for closed fracture Assessment/Plan s/p Fall Traumatic Right Rib Fractures Right Pneumothorax Acute Kidney Injury HTN DM Bipolar Disorder r/o CVA - pneumothorax too small for intervention at this time - continue supplemental O2 to aid in nitrogen washout - pain control - incentive spirometry - chest tube placement if pneumothorax increases in size - neuro eval - etiology of fall unclear, may need MRI brain - DVT prophylaxis - monitor in ICU for now Thank you for this consult Anil Arredondo MD
--- NOTE | 2017-10-27 13:40 | CON.NEURO ---
Consult - History of Present Illness History of Present Illness: 51yo male with h/o HTN, DM, morbid obesity, bipolar disorder who presents s/p fall at 3AM this AM. He woke up and went outside to smoke a cigar when he states his right leg "gave out" and fell on to his right side on the concrete as well as his head. Reports right sided rib pain, pain with inspiration. No fevers or chills. Then reports falling 2 more times. He does take narcotics and trazadone at night. CT head unremarkable aside from some superficial swelling but CT chest showing right sided rib fractures and small right sided pneumothorax. - Past Medical History [employer]: Yes: Peripheral Neuropathy Cardio/Vascular: Yes: CAD (POSITIVE STRESS TEST 2013), HTN, Hyperlipdemia Pulmonary: Yes: COPD Gastrointestinal: Yes: GERD Psych: Yes: Bipolar Musculoskeletal: Yes: Osteoarthritis Endocrine: Yes: Diabetes Mellitus - Alcohol/Substance Use Hx Alcohol Use: No - Smoking History Smoking history: Never smoked Have you smoked in the past 12 months: No Aproximately how many cigarettes per day: 1 - Social History Usual Living Arrangement: Other (and with cousin) ADL: Independent Occupation: DISABLED History of Recent Travel: No Home Medications - Allergies Allergies/Adverse Reactions: Allergies Allergy/AdvReac Type Severity Reaction Status Date / Time haloperidol [From Haldol] Allergy Severe MUSCLE Verified 10/27/17 06:44 SPASMS haloperidol lactate AdvReac Severe MUSCLE Verified 10/27/17 06:44 [From Haldol] SPASMS - Home Medications Home Medications: Ambulatory Orders Divalproex [Depakote -] 250 mg PO BID 11/25/13 Gabapentin [Neurontin] 600 mg PO TID 11/25/13 Insuln Asp Prt/Insulin Aspart [Novolog Mix 70-30 Flexpen Syrn] 25 unit SQ ACDIN 11/25/13 Insuln Asp Prt/Insulin Aspart [Novolog Mix 70-30 Flexpen Syrn] 40 unit SQ ACBK 11/25/13 Quetiapine Fumarate [Seroquel -] 300 mg PO BID 11/25/13 Trazodone HCl [Desyrel -] 300 mg PO HS 11/25/13 Dexlansoprazole [Dexilant] 60 mg PO DAILY 02/04/17 Risperidone [Risperdal] 3 mg PO DAILY 02/04/17 Oxycodone HCl/Acetaminophen [Percocet 5-325 mg Tablet -] 1 - 2 tab PO Q6H #60 tab MDD 6 02/17/17 Family Disease History - Family Disease History Family Disease History: CA: Father, Mother Physical Exam-Neuro Vital Signs: Vital Signs Temperature 98.1 F 10/27/17 06:44 Pulse Rate 86 10/27/17 08:28 Respiratory Rate 24 10/27/17 08:28 Blood Pressure 114/81 10/27/17 08:28 O2 Sat by Pulse Oximetry (%) 100 10/27/17 10:57 Labs: CBC, BMP 10/27/17 07:01 10/27/17 07:01 INR, PTT INR 1.14 (0.82-1.09) 10/27/17 07:01 - Neuro Exam Level Of Consciousness: Yes: Alert, Oriented to Person (EOMi, no facial, following requests , motor 5/5, no drift, reflexes trace ) Imaging - Results Cat Scan: Report Reviewed, Image Reviewed Problem List - Problems (1) Acute pneumothorax Code(s): J93.83 - OTHER PNEUMOTHORAX (2) Bipolar disorder Code(s): F31.9 - BIPOLAR DISORDER, UNSPECIFIED (3) Fall Code(s): W19.XXXA - UNSPECIFIED FALL, INITIAL ENCOUNTER Assessment/Plan 51yo male with h/o HTN, DM, morbid obesity, bipolar disorder who presents s/p fall at 3AM this AM. He woke up and went outside to smoke a cigar when he states his right leg "gave out" and fell on to his right side on the concrete as well as his head. Reports right sided rib pain, pain with inspiration. No fevers or chills. Then reports falling 2 more times. He does take narcotics and trazadone at night. CT head unremarkable aside from some superficial swelling but CT chest showing right sided rib fractures and small right sided pneumothorax. no evidence of a stroke clinically no focal weakness, avel in knees maybe affecting gait no clear signs of a seizure, no AD for now card MISHRA for syncope /PULM FU consider orthopedic eval for knee pain Dr Goss
[2017-10-27] MEDS: morphine SULFATE 4 MG/ML VIAL IVPUSH PRN ×2 (15:11→19:30)
[2017-10-27] MEDS: INSULIN SLIDING SCALE (NOVOLOG) 1 VIAL SQ SCH ×2 (17:27→22:13)
[2017-10-27 19:20] LABS: INR 1.13 (0.82-1.09); PROTHROMBIN TIME (PATIENT) 12.8 SEC (9.98-11.88)
--- NOTE | 2017-10-27 20:42 | PN ---
Progress Note (short form) - Note Progress Note: Reviewed charts, films, labs, and vs. A 51 yo, male with multi pmh presented to [facility] after a fall, resulted in right rib fractures and pneumothorax. Admitted to ICU for close observation, respiratory supp, pain control, and potential chest tube placement if he develops worsening ptx. Noted case discussion between Drs. Maynor Colon and Anil Arredondo. 1. Cont supp care 2. Chest tube per pulm or IR 3. Pain control 4. Will follow with you
[2017-10-27] MEDS: MUPIROCIN 2% TOPICAL OINTMENT FOR DECOLONIZATION NS SCH (22:03)
[2017-10-27] MEDS: CHLORHEXIDINE GLUCONATE 4% CLEANSER FOR DECOLONIZATION TP SCH (22:03)
[2017-10-28] MEDS: morphine SULFATE 4 MG/ML VIAL IVPUSH PRN ×2 (05:29→20:05)
[2017-10-28] MEDS: INSULIN SLIDING SCALE (NOVOLOG) 1 VIAL SQ SCH ×4 (06:12→21:51)
[2017-10-28 06:33] LABS: BASO % 0.4 % (0-2.0); EOS % 1.2 % (0-4.5); HEMATOCRIT 40.6 % (35.4-49); HEMOGLOBIN 14.4 GM/dL (11.7-16.9); LYMPH % 17.7 % (8-40); MCH 31.5 pg (25.7-33.7); MCHC 35.4 g/dl (32.0-35.9); MEAN PLT VOLUME 10.3 fl (7.5-11.1); MONO % 6.4 % (3.8-10.2); NEUT % 74.3 % (42.8-82.8); PLATELET COUNT 143 K/MM3 (134-434); RBC 4.57 M/mm3 (4.00-5.60); RDW 12.8 % (11.9-15.9); WHITE BLOOD COUNT 10.8 K/mm3 (4.0-10.0)
[2017-10-28 07:10] LABS: CHLORIDE 99 mmol/L (98-107); POTASSIUM 4.6 mmol/L (3.5-5.1); SODIUM 137 mmol/L (136-145)
[2017-10-28 07:17] LABS: ALBUMIN 3.6 g/dl (3.4-5.0); ALK PHOS 49 U/L (45-117); ANION GAP 8 (8-16); BILIRUBIN,TOTAL 0.7 mg/dL (0.2-1.0); BLOOD UREA NITROGEN 17 mg/dL (7-18); CALCIUM 8.3 mg/dL (8.5-10.1); CO2 30 mmol/L (21-32); GLUCOSE,RANDOM 214 mg/dL (74-106); PHOSPHOROUS 2.9 mg/dL (2.5-4.9); SGOT/AST 25 U/L (15-37); SGPT/ALT 56 U/L (12-78)
--- NOTE | 2017-10-28 07:35 | CONSULT ---
Consult Consult Specialty:: Thoracic Surgery Referred by:: ED Reason for Consultation:: Right rib fracture and pneumothorax - History of Present Illness Chief Complaint: Chest pain and shortness of breath History of Present Illness: A 51-year-old male with history of morbid obesity, DM, and bipolar disorder who presented to [facility] ED after a fall yesterday. His workup including chest x-ray and CT chest showed multiple right rib fractures and pneumothorax. He reports moderate to severe right chest wall pain and mild shortness of breath. He denies fever, chills, cough, sputum production, hemoptysis, loss of consciousness, headache and dizziness. 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: Peripheral Neuropathy Cardio/Vascular: Yes: CAD (POSITIVE STRESS TEST 2013), HTN, Hyperlipdemia Pulmonary: Yes: COPD Gastrointestinal: Yes: GERD Psych: Yes: Bipolar Musculoskeletal: Yes: Osteoarthritis Endocrine: Yes: Diabetes Mellitus - Alcohol/Substance Use Hx Alcohol Use: No - Smoking History Smoking history: Never smoked Have you smoked in the past 12 months: No Aproximately how many cigarettes per day: 1 - Social History Usual Living Arrangement: Other (and with cousin) ADL: Independent Occupation: DISABLED History of Recent Travel: No Home Medications - Allergies Allergies/Adverse Reactions: Allergies Allergy/AdvReac Type Severity Reaction Status Date / Time haloperidol [From Haldol] Allergy Severe MUSCLE Verified 10/27/17 06:44 SPASMS haloperidol lactate AdvReac Severe MUSCLE Verified 10/27/17 06:44 [From Haldol] SPASMS - Home Medications Home Medications: Ambulatory Orders Divalproex [Depakote -] 250 mg PO BID 11/25/13 Gabapentin [Neurontin] 600 mg PO TID 11/25/13 Insuln Asp Prt/Insulin Aspart [Novolog Mix 70-30 Flexpen Syrn] 25 unit SQ ACDIN 11/25/13 Insuln Asp Prt/Insulin Aspart [Novolog Mix 70-30 Flexpen Syrn] 40 unit SQ ACBK 11/25/13 Quetiapine Fumarate [Seroquel -] 300 mg PO BID 11/25/13 Trazodone HCl [Desyrel -] 300 mg PO HS 11/25/13 Dexlansoprazole [Dexilant] 60 mg PO DAILY 02/04/17 Risperidone [Risperdal] 3 mg PO DAILY 02/04/17 Oxycodone HCl/Acetaminophen [Percocet 5-325 mg Tablet -] 1 - 2 tab PO Q6H #60 tab MDD 6 02/17/17 Family Disease History - Family Disease History Family Disease History: CA: Father, Mother Review of Systems - Review of Systems Constitutional: reports: No Symptoms Eyes: reports: No Symptoms HENT: reports: No Symptoms Neck: reports: No Symptoms Cardiovascular: reports: No Symptoms Respiratory: reports: SOB, SOB on Exertion Genitourinary: reports: No Symptoms Breasts: reports: No Symptoms Reported Musculoskeletal: reports: Other (right chest wall pain) Integumentary: reports: No Symptoms Neurological: reports: No Symptoms Endocrine: reports: No Symptoms Hematology/Lymphatic: reports: No Symptoms Psychiatric: reports: No Symptoms, Other Physical Exam Vital Signs: Vital Signs Temperature 98.3 F 10/28/17 06:00 Pulse Rate 73 10/28/17 06:00 Respiratory Rate 22 10/28/17 06:00 Blood Pressure 166/85 10/28/17 06:00 O2 Sat by Pulse Oximetry (%) 100 10/27/17 20:02 Constitutional: Yes: Well Nourished, No Distress Eyes: Yes: WNL HENT: Yes: WNL Neck: Yes: WNL Cardiovascular: Yes: WNL, Regular Rate and Rhythm Respiratory: Yes: Diminished, On Nasal O2, SOB on Exertion, Other (on NRB. right chest wall tender to palpation.) ...Rectal Exam: Yes: Deferred Renal/: Yes: WNL Musculoskeletal: Yes: WNL Extremities: Yes: WNL Edema: No Integumentary: Yes: Other (ecchymosis) Neurological: Yes: WNL, Cran Nerves II-XII Intact Psychiatric: Yes: WNL Labs: CBC, BMP 10/28/17 06:15 10/28/17 06:15 Imaging - Results Chest X-ray: Report Reviewed, Image Reviewed Cat Scan: Report Reviewed, Image Reviewed Problem List - Problems (1) Pneumothorax Code(s): J93.9 - PNEUMOTHORAX, UNSPECIFIED (2) Ribs, multiple fractures Code(s): S22.49XA - MULTIPLE FRACTURES OF RIBS, UNSP SIDE, INIT FOR CLOS FX Qualifiers: Encounter type: initial encounter Fracture type: closed Laterality: right Qualified Code(s): S22.41XA - Multiple fractures of ribs, right side, initial encounter for closed fracture Assessment/Plan A 51-year-old male with history of morbid obesity, DM, and bipolar disorder who presented to [facility] ED after a traumatic fall. His radiographic studies and laboratory results were reviewed and discussed with the patient in extensive detail. He has multiple right rib fractures and small pneumothorax in which it appears to be stable. It is imperative to address his pain issue to prevent pulmonary complications. He is aware and understood his medical condition and potential surgical intervention (pigtail catheter) if he develops worsening right pneumothorax. All questions were answered in satisfactory manner. He remains stable clinically with no respiratory compromise at the present time. 1. Continue ICU supportive care 2. Serial chest x-ray and possible pigtail catheter per IR if increased pneumothorax 3. Pain control 4. OOB to chair, ambulate with PT, aggressive pulmonary toilet, IS x10/hr 5. Thank you for the interesting consult. Will follow with you.
[2017-10-28] MEDS ORDERED: morphine SULFATE 4 MG/ML VIAL IVPUSH PRN (08:34)
[2017-10-28 09:16] LABS: URINE APPEARANCE CLEAR; URINE BILIRUBIN NEGATIVE (<2.0 mg/dL); URINE BLOOD NEGATIVE (NEGATIVE); URINE COLOR YELLOW; URINE GLUCOSE (UA) 3+ (NEGATIVE); URINE KETONE NEGATIVE (NEGATIVE); URINE LEUK ESTERASE NEGATIVE (NEGATIVE); URINE NITRITE NEGATIVE (NEGATIVE); URINE PROTEIN NEGATIVE (NEGATIVE); URINE UROBILINOGEN NEGATIVE mg/dL (0.2-1.0)
[2017-10-28] MEDS: LIDOCAINE 5% TOPICAL PATCH TP SCH (09:59)
[2017-10-28] MEDS: MUPIROCIN 2% TOPICAL OINTMENT FOR DECOLONIZATION NS SCH ×2 (09:59→21:16)
--- NOTE | 2017-10-28 10:34 | PN ---
Progress Note, Physician Chief Complaint: Syncope, fall, Rib fracture, pneumothorax History of Present Illness: NAD, in bed pain on coughing or movement Supplemental O2 Seen by Pulmonary Repeat CXR shows small Pneumothorax comparatively- no chest tube placement indicated at this time. - Current Medication List Current Medications: Active Medications Chlorhexidine Gluconate (Hibiclens For Decolonization -) 1 applic TP HS [facility] Last Admin: 10/27/17 22:03 Dose: 1 applic Divalproex Sodium (Depakote -) 250 mg PO BID [facility] Insulin Aspart (Novolog Vial Sliding Scale -) 1 vial SQ ACHS [facility] PRN Reason: Protocol Last Admin: 10/28/17 06:12 Dose: 4 units Lidocaine (Lidoderm Patch -) 1 patch TP DAILY [facility] Last Admin: 10/28/17 09:59 Dose: 1 patch Miscellaneous (Lidoderm Patch Removal) 1 each MC DAILY@2200 [facility] Morphine Sulfate (Morphine Sulfate) 2 mg IVPUSH Q4H PRN PRN Reason: PAIN LEVEL 4 - 6 Last Admin: 10/28/17 09:12 Dose: 2 mg Mupirocin (Bactroban Ointment (For Decolonization) -) 1 applic NS BID [facility] Stop: 11/01/17 21:59 Last Admin: 10/28/17 09:59 Dose: 1 applic Non-Formulary Medication (Gabapentin [Neurontin]) 600 mg PO TID [facility] Non-Formulary Medication (Risperidone) 3 mg PO DAILY [facility] Non-Formulary Medication (Trazodone Hcl [Desyrel -]) 300 mg PO HS [facility] Quetiapine Fumarate (Seroquel -) 300 mg PO BID [facility] - Objective Vital Signs: Vital Signs Temperature 98.3 F 10/28/17 06:00 Pulse Rate 75 10/28/17 10:00 Respiratory Rate 15 10/28/17 10:00 Blood Pressure 142/91 10/28/17 10:00 O2 Sat by Pulse Oximetry (%) 100 10/27/17 20:02 Constitutional: Yes: Well Nourished, No Distress, Calm Cardiovascular: Yes: Regular Rate and Rhythm Respiratory: Yes: Diminished (BLL) Gastrointestinal: Yes: Normal Bowel Sounds, Soft Musculoskeletal: Yes: WNL Extremities: Yes: WNL Edema: No Peripheral Pulses WNL: Yes Neurological: Yes: Alert, Oriented Psychiatric: Yes: Alert, Oriented Labs: CBC, BMP 10/28/17 06:15 10/28/17 06:15 INR, PTT INR 1.13 (0.82-1.09) 10/27/17 17:00 Problem List - Problems (1) Acute pneumothorax Assessment/Plan: -Serial CXR's -pulmonary consult -nasal O2, maintain Spo2>90% Code(s): J93.83 - OTHER PNEUMOTHORAX (2) Fall Assessment/Plan: -Syncope? -Neurology consult- no intervention recommended at this time, no underlying neurology cause -Cardiology consult -Echo -Carotid Code(s): W19.XXXA - UNSPECIFIED FALL, INITIAL ENCOUNTER Qualifiers: Encounter type: initial encounter Qualified Code(s): W19.XXXA - Unspecified fall, initial encounter (3) Ribs, multiple fractures Assessment/Plan: -pain management -pulmonary consult -monitor change in pneumothorax Code(s): S22.49XA - MULTIPLE FRACTURES OF RIBS, UNSP SIDE, INIT FOR CLOS FX Qualifiers: Encounter type: initial encounter Fracture type: closed Laterality: right Qualified Code(s): S22.41XA - Multiple fractures of ribs, right side, initial encounter for closed fracture (4) Diabetes Assessment/Plan: uncontrolled -diabetic diet -BGM -Endocrinology consult -Insulin coverage Code(s): E11.9 - TYPE 2 DIABETES MELLITUS WITHOUT COMPLICATIONS Qualifiers: Diabetes mellitus type: type 2 Diabetes mellitus mcc insulin use: with manager intermediate use Assessment/Plan see problem list
[2017-10-28] MEDS ORDERED: QUEtiapine FUMARATE 300 MG TABLET PO SCH (10:45)
[2017-10-28] MEDS ORDERED: risperiDONE 1 MG TABLET (FP) PO SCH (10:45)
[2017-10-28] MEDS ORDERED: ACETAMINOPHEN 325 MG TABLET (FP) PO PRN (11:22)
[2017-10-28] MEDS ORDERED: QUETIAPINE FUMARATE 200 MG, QUETIAPINE FUMARATE 100 MG PO SCH (11:30)
--- NOTE | 2017-10-28 12:04 | PN ---
Physical Exam: SUBJECTIVE: Briefly, 51yo M with history of bipolar, morbid obesity, HTN who presented to the hospital s/p mechanical fall yesterday around 0015h due to his "leg giving out." Pt reports that he fell multiple times due to his leg. Denies LOC, AC therapy, traumatic impact to his head. Pt reported to the ED for increased R chest pain which was found to have 3 fractured ribs and a PTX confirmed by CXR and CT of his chest. Pt received a head CT w/o contrast for r/ o of stroke and neurology was consulted. 24hr events: Repeat imaging showed stable PTX and chest tube/pigtail was deferred OBJECTIVE: Vital Signs Period Temp Pulse Resp BP Sys/[place]lanos Pulse Ox Last 24 Hr 98.0 F-98.6 F 72-85 15-22 95-178/68-96 100-100 GENERAL: Mild distress due to pain, alert, awake, oriented x3, sitting up in bed HEENT: NC/AT, NRB mask in place, EOMI, JING, no JVD, moist mucosa CHEST: Slight subcutaneous emphesematous changes noted LUNGS: Poor inspiratory effort due to pain, distant breath sounds, diminished breath sounds apically anteriorly on R, otherwise CTA, no crackles, no accessory muscle use. HEART: RRR, S1, S2 without murmur ABDOMEN: Soft, nontender, nondistended, normoactive bowel sounds, no guarding, no hepatomegaly EXTREMITIES: 2+ DP pulses, warm, well-perfused, no edema. NEUROLOGICAL: Nonfocal exam. LE strength 5/5 with dorsal and plantar flexion, [id number] normal, sensation intact grossly. Normal speech. Gait not observed. PSYCH: Normal mood, normal affect. SKIN: Warm, dry, no rashes noted Laboratory Results 10/28/17 10/28/17 06:15 06:15 WBC 10.8 H RBC 4.57 Hgb 14.4 Hct 40.6 MCV 89.0 MCH 31.5 MCHC 35.4 RDW 12.8 Plt Count 143 D MPV 10.3 Neutrophils % 74.3 Lymphocytes % 17.7 Monocytes % 6.4 Eosinophils % 1.2 D Basophils % 0.4 PT with INR INR Sodium 137 Potassium 4.6 Chloride 99 Carbon Dioxide 30 Anion Gap 8 BUN 17 D Creatinine 1.0 D Creat Clearance w eGFR > 60 POC Glucometer Random Glucose 214 H Hemoglobin A1c % Calcium 8.3 L Phosphorus 2.9 Magnesium 2.0 Total Bilirubin 0.7 AST 25 D ALT 56 D Alkaline Phosphatase 49 Total Protein 7.0 Albumin 3.6 Urine Color Urine Appearance Urine pH Ur Specific [place] Urine Protein Urine Glucose (UA) Urine Ketones Urine Blood Urine Nitrite Urine Bilirubin Urine Urobilinogen Ur Leukocyte Esterase Valproic Acid Blood Type Antibody Screen Active Medications Generic Name Dose Route Start Last Admin Trade Name Freq PRN Reason Stop Dose Admin Acetaminophen 650 mg 10/28/17 11:22 Tylenol - PO Q4H PRN PAIN LEVEL 1 - 3 Chlorhexidine Gluconate 1 applic 10/27/17 22:00 10/27/17 22:03 Hibiclens For Decolonization - TP 1 applic [facility] Administration Divalproex Sodium 250 mg 10/28/17 22:00 Depakote - PO BID [facility] Docusate Sodium 100 mg 10/29/17 10:00 Colace - PO DAILY [facility] Gabapentin 600 mg 10/28/17 14:00 Neurontin - PO TID [facility] Insulin Aspart 1 vial 10/27/17 16:30 10/28/17 06:12 Novolog Vial Sliding Scale - SQ 4 units ACHS [facility] Administration Protocol Lidocaine 1 patch 10/28/17 10:00 10/28/17 09:59 Lidoderm Patch - TP 1 patch DAILY [facility] Administration Miscellaneous 1 each 10/28/17 22:00 Lidoderm Patch Removal MC DAILY@2200 [facility] Morphine Sulfate 2 mg 10/28/17 11:23 Morphine Sulfate IVPUSH Q4H PRN PAIN LEVEL 7 - 10 Mupirocin 1 applic 10/27/17 22:00 10/28/17 09:59 Bactroban Ointment (For Decolonization) - NS 11/01/17 21:59 1 applic BID [facility] Administration Oxycodone HCl 5 mg 10/28/17 11:21 Roxicodone - PO Q6H PRN PAIN LEVEL 4 - 6 Quetiapine Fumarate 600 mg 10/28/17 22:00 Seroquel - PO [facility] Risperidone 3 mg 10/28/17 22:00 Risperdal - PO [facility] Trazodone HCl 300 mg 10/28/17 22:00 Desyrel - PO [facility] ASSESSMENT/PLAN: Neuro: Weakness in RLE --r/o stroke/TIA --Previous Head CT negative --No residual deficits from initial 'leg giving out' episode --Neurology consulted --Not likely any stroke or TIA syndrome Respiratory: R Pneumothorax --s/p fall with fracturing of ribs --Repeat CXR last afternoon showed stability of PTX --No need for pigtail or other chest tube at this time --Continue supplemental O2 for nitrogen washout to help re-expand lung --CXR in AM --Continue Tylenol 650mg PRN for pain 1-3 --Continue Oxycodone 5mg PRN for pain 4-6 --Continue Morphine 2mg IVP q4h PRN pain 7-10 --Adding Lidociaine patch for chest wall pain Endocrine: DM: BGM ACHS ISS ACHS Continue Gabapentin 600mg TID PO Psych: History of Bipolar Disorder --Continue Risperidone 3mg PO HS --Continue Seroquel 600mg PO HS --Continue Trazadone 300mg PO HS --Discontinued Depakote: pt states he hasn't taken this medication for years FEN: Fluids: Not indicated; tolerating PO Electrolyte abnormalities: None currently Nutrition: Diabetic diet PPX: DVT - SCDs GI - Not indicated Deconditioning: Physical therapy and incentive spirometer Dispo: Transfer to / Case discussed with Dr. Arnulfo Gaitan, DO - IM PGY-1 Visit type - Emergency Visit Emergency Visit: No - New Patient This patient is new to me today: No - Critical Care Critical Care patient: Yes Total Critical Care Time (in minutes): 35 Critical Care Statement: The care of this patient involved high complexity decision making to prevent further life threatening deterioration of the patient 's condition and/or to evaluate & treat vital organ system(s) failure or risk of failure.
--- NOTE | 2017-10-28 12:37 | PN ---
Teaching Attending Note Name of Resident: Onesimo Gaitan ATTENDING PHYSICIAN STATEMENT I saw and evaluated the patient. I reviewed the resident's note and discussed the case with the resident. I agree with the resident's findings and plan as documented. SUBJECTIVE: Pt seen and examined in the ICU. Still with significant right sided rib pain. AM CXR still with tiny right apical pneumothorax. OBJECTIVE: Last Vital Signs Temp Pulse Resp BP Pulse Ox 98.2 F 76 15 150/79 100 10/28/17 10:38 10/28/17 10:38 10/28/17 10:38 10/28/17 10:38 10/27/17 20:02 Intake & Output 10/25/17 10/26/17 10/27/17 10/28/17 23:59 23:59 23:59 23:59 Intake Total 1000 Output Total 450 850 Balance -450 150 Weight 119.748 kg 120.202 kg Gen: pain with movement Heart: RRR Lung: decreased breath sounds at the bases Abd: soft, nontender Ext: no edema CBC, BMP 10/28/17 06:15 10/28/17 06:15 Active Medications Acetaminophen (Tylenol -) 650 mg PO Q4H PRN PRN Reason: PAIN LEVEL 1 - 3 Chlorhexidine Gluconate (Hibiclens For Decolonization -) 1 applic TP [facility] Last Admin: 10/27/17 22:03 Dose: 1 applic Divalproex Sodium (Depakote -) 250 mg PO BID [facility] Docusate Sodium (Colace -) 100 mg PO DAILY [facility] Gabapentin (Neurontin -) 600 mg PO TID [facility] Insulin Aspart (Novolog Vial Sliding Scale -) 1 vial SQ ACHS [facility] PRN Reason: Protocol Last Admin: 10/28/17 06:12 Dose: 4 units Lidocaine (Lidoderm Patch -) 1 patch TP DAILY [facility] Last Admin: 10/28/17 09:59 Dose: 1 patch Miscellaneous (Lidoderm Patch Removal) 1 each MC DAILY@2200 [facility] Morphine Sulfate (Morphine Sulfate) 2 mg IVPUSH Q4H PRN PRN Reason: PAIN LEVEL 7 - 10 Mupirocin (Bactroban Ointment (For Decolonization) -) 1 applic NS BID [facility] Stop: 11/01/17 21:59 Last Admin: 10/28/17 09:59 Dose: 1 applic Oxycodone HCl (Roxicodone -) 5 mg PO Q6H PRN PRN Reason: PAIN LEVEL 4 - 6 Quetiapine Fumarate (Seroquel -) 600 mg PO HS [facility] Risperidone (Risperdal -) 3 mg PO HS [facility] Trazodone HCl (Desyrel -) 300 mg PO HS [facility] ASSESSMENT AND PLAN: s/p Fall Traumatic Right Rib Fractures Right Pneumothorax Acute Kidney Injury HTN DM Bipolar Disorder r/o CVA - pneumothorax too small for intervention at this time - continue supplemental O2 to aid in nitrogen washout - pain control - incentive spirometry - CXR in AM - chest tube placement if pneumothorax increases in size - DVT prophylaxis - can monitor on floor Problem List - Problems (1) Acute pneumothorax Code(s): J93.83 - OTHER PNEUMOTHORAX (2) Fall Code(s): W19.XXXA - UNSPECIFIED FALL, INITIAL ENCOUNTER (3) Hypertension Code(s): I10 - ESSENTIAL (PRIMARY) HYPERTENSION (4) Diabetes Code(s): E11.9 - TYPE 2 DIABETES MELLITUS WITHOUT COMPLICATIONS (5) Bipolar disorder Code(s): F31.9 - BIPOLAR DISORDER, UNSPECIFIED (6) Ribs, multiple fractures Code(s): S22.49XA - MULTIPLE FRACTURES OF RIBS, UNSP SIDE, INIT FOR CLOS FX Qualifiers: Encounter type: initial encounter Fracture type: closed Laterality: right Qualified Code(s): S22.41XA - Multiple fractures of ribs, right side, initial encounter for closed fracture
--- NOTE | 2017-10-28 12:55 | CON.CARD ---
Consult Consult Specialty:: Cardiology Referred by:: Lobo Bowden NP Reason for Consultation:: s/p fall, ? syncope - History of Present Illness Chief Complaint: s/p fall, ? syncope History of Present Illness: 51yo male with h/o HTN, DM, morbid obesity, bipolar disorder admitted post fall with right rib fracture and small right PTX. He woke up and went outside to smoke a cigar when he states his right leg "gave out" and fell on to his right side on the concrete as well as his head. Reports right sided rib pain, pain with inspiration. He denies prodromal symptoms, chest pain, dyspnea, near or true syncope, palpitations, orthopnea, PND or LE edema. Then reports falling 2 more times. He does take narcotics and trazadone at night. CT head unremarkable aside from some superficial swelling but CT chest showing right sided rib fractures and small right sided pneumothorax. No events on telemetry. 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 Cardio/Vascular: Yes: CAD (POSITIVE STRESS TEST 2013), HTN, Hyperlipdemia Pulmonary: Yes: COPD Gastrointestinal: Yes: GERD Psych: Yes: Bipolar Musculoskeletal: Yes: Osteoarthritis Endocrine: Yes: Diabetes Mellitus - Alcohol/Substance Use Hx Alcohol Use: No - Smoking History Smoking history: Never smoked Have you smoked in the past 12 months: No Aproximately how many cigarettes per day: 1 - Social History Usual Living Arrangement: Other (and with cousin) ADL: Independent Occupation: DISABLED History of Recent Travel: No Home Medications - Allergies Allergies/Adverse Reactions: Allergies Allergy/AdvReac Type Severity Reaction Status Date / Time haloperidol [From Haldol] Allergy Severe MUSCLE Verified 10/27/17 06:44 SPASMS haloperidol lactate AdvReac Severe MUSCLE Verified 10/27/17 06:44 [From Haldol] SPASMS - Home Medications Home Medications: Ambulatory Orders Divalproex [Depakote -] 250 mg PO BID 11/25/13 Gabapentin [Neurontin] 600 mg PO TID 11/25/13 Insuln Asp Prt/Insulin Aspart [Novolog Mix 70-30 Flexpen Syrn] 25 unit SQ ACDIN 11/25/13 Insuln Asp Prt/Insulin Aspart [Novolog Mix 70-30 Flexpen Syrn] 40 unit SQ ACBK 11/25/13 Quetiapine Fumarate [Seroquel -] 300 mg PO BID 11/25/13 Trazodone HCl [Desyrel -] 300 mg PO HS 11/25/13 Dexlansoprazole [Dexilant] 60 mg PO DAILY 02/04/17 Risperidone [Risperdal] 3 mg PO DAILY 02/04/17 Oxycodone HCl/Acetaminophen [Percocet 5-325 mg Tablet -] 1 - 2 tab PO Q6H #60 tab MDD 6 02/17/17 Family Disease History - Family Disease History Family Disease History: CA: Father, Mother Review of Systems - Review of Systems Cardiovascular: reports: Chest Pain Vital Signs: Vital Signs Temperature 98.2 F 10/28/17 10:38 Pulse Rate 74 10/28/17 12:00 Respiratory Rate 15 10/28/17 12:00 Blood Pressure 146/80 10/28/17 12:00 O2 Sat by Pulse Oximetry (%) 100 10/27/17 20:02 Constitutional: Yes: No Distress, Calm Neck: Yes: Supple Respiratory: Yes: Regular, Diminished, On Nasal O2 Gastrointestinal: Yes: Normal Bowel Sounds, Soft, Abdomen, Obese Cardiovascular: Yes: Regular Rate and Rhythm JVD: No Carotid Bruit: No Heart Sounds: Yes: S1, S2 Edema: No - Other Data Labs, Other Data: CBC, BMP 10/28/17 06:15 10/28/17 06:15 INR, PTT INR 1.13 (0.82-1.09) 10/27/17 17:00 NSR no pauses on telemetry Ejection Fraction %: LVEF > or = 40 % Imaging - Results Chest X-ray: Report Reviewed Cat Scan: Report Reviewed (HCT negative) Ultrasound: Report Reviewed (No carotid stenosis) Problem List - Problems (1) Acute pneumothorax Code(s): J93.83 - OTHER PNEUMOTHORAX (2) Bipolar disorder Code(s): F31.9 - BIPOLAR DISORDER, UNSPECIFIED Qualifiers: Active/Remission status: remission status unspecified Qualified Code(s): F31.9 - Bipolar disorder, unspecified (3) Fall Code(s): W19.XXXA - UNSPECIFIED FALL, INITIAL ENCOUNTER Qualifiers: Encounter type: initial encounter Qualified Code(s): W19.XXXA - Unspecified fall, initial encounter (4) Hypertension Code(s): I10 - ESSENTIAL (PRIMARY) HYPERTENSION (5) Pneumothorax Code(s): J93.9 - PNEUMOTHORAX, UNSPECIFIED Qualifiers: Pneumothorax type: traumatic Encounter type: initial encounter Qualified Code(s): S27.0XXA - Traumatic pneumothorax, initial encounter (6) Ribs, multiple fractures Code(s): S22.49XA - MULTIPLE FRACTURES OF RIBS, UNSP SIDE, INIT FOR CLOS FX Qualifiers: Encounter type: initial encounter Fracture type: closed Laterality: right Qualified Code(s): S22.41XA - Multiple fractures of ribs, right side, initial encounter for closed fracture (7) Diabetes Code(s): E11.9 - TYPE 2 DIABETES MELLITUS WITHOUT COMPLICATIONS Qualifiers: Diabetes mellitus type: type 2 Diabetes mellitus 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 s/p mechanical fall, syncope less likely 2. Traumatic Right Rib Fractures 3. Right Pneumothorax on O2 4. Acute Kidney Injury improved 5. HTN 6. Insulin-dependent Type 2 DM not at goal control 7. Bipolar Disorder P: 1. Pneumothorax too small for intervention and improving per CXR 2. Continue supplemental O2 to aid in nitrogen washout, telemetry shows no significant pauses 3. Analgesia as needed, incentive spirometry 4. DVT prophylaxis, PT 5. Thank you for consultative opportunity
[2017-10-28] MEDS: GABAPENTIN 300 MG CAPSULE (FP) PO SCH ×2 (13:07→21:20)
[2017-10-28] MEDS: HEPARIN NA (PORCINE) 5,000 UNITS/ML 1ML VIAL SQ SCH ×2 (15:03→21:20)
[2017-10-28] MEDS: oxyCODONE HCL 5 MG TABLET PO PRN ×2 (15:03→21:20)
[2017-10-28] MEDS ORDERED: traZODone HCL 50 MG TABLET (FP) ONE (21:06)
[2017-10-28] MEDS ORDERED: PT OWN MED DRAWER 7, Y5N ONE (21:08)
[2017-10-28] MEDS: traZODone HCL 100 MG TABLET (FP) PO SCH (21:21)
[2017-10-28] MEDS: risperiDONE 1 MG TABLET (FP) PO SCH (21:21)
[2017-10-28] MEDS: LIDOCAINE PATCH REMOVAL MC SCH (21:21)
[2017-10-28] MEDS: CHLORHEXIDINE GLUCONATE 4% CLEANSER FOR DECOLONIZATION TP SCH (21:21)
[2017-10-28] MEDS: DIVALPROEX SODIUM 250 MG TABLET E.C. PO SCH (21:51)
[2017-10-28] MEDS: QUEtiapine FUMARATE 200 MG TABLET PO SCH (21:51)
[2017-10-29] MEDS: GABAPENTIN 300 MG CAPSULE (FP) PO SCH ×3 (05:58→22:01)
[2017-10-29] MEDS: HEPARIN NA (PORCINE) 5,000 UNITS/ML 1ML VIAL SQ SCH ×3 (05:58→22:00)
[2017-10-29] MEDS: INSULIN SLIDING SCALE (NOVOLOG) 1 VIAL SQ SCH ×4 (05:59→22:03)
[2017-10-29] MEDS: oxyCODONE HCL 5 MG TABLET PO PRN ×2 (06:03→22:00)
[2017-10-29] MEDS ORDERED: INSULIN (NOVOLOG) ASPART 100 UNITS/ML 10ML VIAL ONE ×3 (06:36→17:11)
[2017-10-29 08:10] LABS: BASO % 0.5 % (0-2.0); EOS % 0.6 % (0-4.5); HEMATOCRIT 42.2 % (35.4-49); HEMOGLOBIN 14.8 GM/dL (11.7-16.9); LYMPH % 20.6 % (8-40); MCH 30.6 pg (25.7-33.7); MCHC 34.9 g/dl (32.0-35.9); MEAN CELL VOLUME 87.7 fl (80-96); MONO % 8.6 % (3.8-10.2); NEUT % 69.7 % (42.8-82.8); PLATELET COUNT 152 K/MM3 (134-434); RBC 4.82 M/mm3 (4.00-5.60); RDW 12.6 % (11.9-15.9); WHITE BLOOD COUNT 9.8 K/mm3 (4.0-10.0)
[2017-10-29] MEDS: morphine SULFATE 4 MG/ML VIAL IVPUSH PRN ×3 (08:21→19:48)
[2017-10-29 08:25] LABS: ALBUMIN 3.4 g/dl (3.4-5.0); ANION GAP 7 (8-16); BLOOD UREA NITROGEN 15 mg/dL (7-18); CALCIUM 8.5 mg/dL (8.5-10.1); CHLORIDE 98 mmol/L (98-107); CO2 30 mmol/L (21-32); GLUCOSE,RANDOM 204 mg/dL (74-106); POTASSIUM 4.4 mmol/L (3.5-5.1); SGOT/AST 14 U/L (15-37); SGPT/ALT 39 U/L (12-78); SODIUM 135 mmol/L (136-145)
[2017-10-29 08:27] LABS: ALK PHOS 48 U/L (45-117); BILIRUBIN,TOTAL 0.7 mg/dL (0.2-1.0); TOT PROT 7.1 g/dl (6.4-8.2)
[2017-10-29] MEDS ORDERED: PT OWN MED DRAWER 7, Y5N ONE (09:19)
[2017-10-29] MEDS: LIDOCAINE 5% TOPICAL PATCH TP SCH (09:24)
[2017-10-29] MEDS: DOCUSATE SODIUM 100 MG CAPSULE (FP) PO SCH (09:24)
--- NOTE | 2017-10-29 09:43 | HP ---
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: Yes: Peripheral Neuropathy Cardiovascular: Yes: CAD (POSITIVE STRESS TEST 2013), HTN, Hyperlipdemia Pulmonary: Yes: COPD Gastrointestinal: Yes: GERD Psych: Yes: Bipolar Musculoskeletal: Yes: Osteoarthritis Endocrine: Yes: Diabetes Mellitus - Smoking History Smoking history: Never smoked Have you smoked in the past 12 months: No Aproximately how many cigarettes per day: 1 - Alcohol/Substance Use Hx Alcohol Use: No - Social History ADL: Independent Occupation: DISABLED History of Recent Travel: No Home Medications - Allergies Allergies/Adverse Reactions: Allergies Allergy/AdvReac Type Severity Reaction Status Date / Time haloperidol [From Haldol] Allergy Severe MUSCLE Verified 10/27/17 06:44 SPASMS haloperidol lactate AdvReac Severe MUSCLE Verified 10/27/17 06:44 [From Haldol] SPASMS - Home Medications Home Medications: Ambulatory Orders Divalproex [Depakote -] 250 mg PO BID 11/25/13 Gabapentin [Neurontin] 600 mg PO TID 11/25/13 Insuln Asp Prt/Insulin Aspart [Novolog Mix 70-30 Flexpen Syrn] 25 unit SQ ACDIN 11/25/13 Insuln Asp Prt/Insulin Aspart [Novolog Mix 70-30 Flexpen Syrn] 40 unit SQ ACBK 11/25/13 Quetiapine Fumarate [Seroquel -] 300 mg PO BID 11/25/13 Trazodone HCl [Desyrel -] 300 mg PO HS 11/25/13 Dexlansoprazole [Dexilant] 60 mg PO DAILY 02/04/17 Risperidone [Risperdal] 3 mg PO DAILY 02/04/17 Oxycodone HCl/Acetaminophen [Percocet 5-325 mg Tablet -] 1 - 2 tab PO Q6H #60 tab MDD 6 02/17/17 Family Disease History - Family Disease History Family Disease History: CA: Father, Mother Physical Examination Vital Signs: Vital Signs Temperature 97.7 F 10/29/17 05:30 Pulse Rate 91 H 10/28/17 22:00 Respiratory Rate 24 10/29/17 05:30 Blood Pressure 100/65 10/29/17 05:30 O2 Sat by Pulse Oximetry (%) 97 10/28/17 21:00 Labs: CBC, BMP 10/29/17 07:44 10/29/17 07:44
[2017-10-29] MEDS: DIVALPROEX SODIUM 250 MG TABLET E.C. PO SCH ×2 (10:36→22:02)
[2017-10-29] MEDS: MUPIROCIN 2% TOPICAL OINTMENT FOR DECOLONIZATION NS SCH ×2 (10:36→22:02)
--- NOTE | 2017-10-29 10:46 | PN ---
Progress Note, Physician - Current Medication List Current Medications: Active Medications Acetaminophen (Tylenol -) 650 mg PO Q4H PRN PRN Reason: PAIN LEVEL 1 - 3 Chlorhexidine Gluconate (Hibiclens For Decolonization -) 1 applic TP HS [facility] Last Admin: 10/28/17 21:21 Dose: Not Given Divalproex Sodium (Depakote -) 250 mg PO BID [facility] Last Admin: 10/28/17 21:51 Dose: 250 mg Docusate Sodium (Colace -) 100 mg PO DAILY [facility] Last Admin: 10/29/17 09:24 Dose: 100 mg Gabapentin (Neurontin -) 600 mg PO TID [facility] Last Admin: 10/29/17 05:58 Dose: 600 mg Heparin Sodium (Porcine) (Heparin -) 5,000 unit SQ TID [facility] Last Admin: 10/29/17 05:58 Dose: 5,000 unit Insulin Aspart (Novolog Vial Sliding Scale -) 1 vial SQ [facility] PRN Reason: Protocol Last Admin: 10/29/17 05:59 Dose: 4 unit Lidocaine (Lidoderm Patch -) 1 patch TP DAILY [facility] Last Admin: 10/29/17 09:24 Dose: 1 patch Miscellaneous (Lidoderm Patch Removal) 1 each MC DAILY@2200 [facility] Last Admin: 10/28/17 21:21 Dose: 1 each Morphine Sulfate (Morphine Sulfate) 2 mg IVPUSH Q4H PRN PRN Reason: PAIN LEVEL 7 - 10 Last Admin: 10/29/17 08:21 Dose: 2 mg Mupirocin (Bactroban Ointment (For Decolonization) -) 1 applic NS BID [facility] Stop: 11/01/17 21:59 Last Admin: 10/28/17 21:16 Dose: Not Given Oxycodone HCl (Roxicodone -) 5 mg PO Q6H PRN PRN Reason: PAIN LEVEL 4 - 6 Last Admin: 10/29/17 06:03 Dose: 5 mg Quetiapine Fumarate (Seroquel -) [address] [facility] Last Admin: 10/28/17 21:51 Dose: 600 mg Risperidone (Risperdal -) [address] [facility] Last Admin: 10/28/17 21:21 Dose: 3 mg Trazodone HCl (Desyrel -) [address] [facility] Last Admin: 10/28/17 21:21 Dose: 300 mg - Objective Vital Signs: Vital Signs Temperature 97.7 F 10/29/17 05:30 Pulse Rate 91 H 10/28/17 22:00 Respiratory Rate 24 10/29/17 05:30 Blood Pressure 100/65 10/29/17 05:30 O2 Sat by Pulse Oximetry (%) 97 10/28/17 21:00 Labs: CBC, BMP 10/29/17 07:44 10/29/17 07:44 INR, PTT INR 1.13 (0.82-1.09) 10/27/17 17:00 Assessment/Plan - Problems (1) Acute pneumothorax Assessment/Plan: -Serial CXR's -pulmonary consult -nasal O2, maintain Spo2>90% Code(s): J93.83 - OTHER PNEUMOTHORAX (2) Fall Assessment/Plan: -Syncope? -Neurology consult- no intervention recommended at this time, no underlying neurology cause -Cardiology consult -Echo -Carotid Code(s): W19.XXXA - UNSPECIFIED FALL, INITIAL ENCOUNTER Qualifiers: Encounter type: initial encounter Qualified Code(s): W19.XXXA - Unspecified fall, initial encounter (3) Ribs, multiple fractures Assessment/Plan: -pain management -pulmonary consult -monitor change in pneumothorax Code(s): S22.49XA - MULTIPLE FRACTURES OF RIBS, UNSP SIDE, INIT FOR CLOS FX Qualifiers: Encounter type: initial encounter Fracture type: closed Laterality: right Qualified Code(s): S22.41XA - Multiple fractures of ribs, right side, initial encounter for closed fracture (4) Diabetes Assessment/Plan: uncontrolled -diabetic diet -BGM -Endocrinology consult -Insulin coverage Code(s): E11.9 - TYPE 2 DIABETES MELLITUS WITHOUT COMPLICATIONS Qualifiers: Diabetes mellitus type: type 2 Diabetes mellitus fpc insulin use: with fpc use (5) Leg Weakness Assessment/Plan: -xray of ls -emg -pt -ortho
--- NOTE | 2017-10-29 12:05 | PN ---
Progress Note, Physician History of Present Illness: Denies near or true syncope, chest discomfort and PTX improving. - Current Medication List Current Medications: Active Medications Acetaminophen (Tylenol -) 650 mg PO Q4H PRN PRN Reason: PAIN LEVEL 1 - 3 Chlorhexidine Gluconate (Hibiclens For Decolonization -) 1 applic TP HS [facility] Last Admin: 10/28/17 21:21 Dose: Not Given Divalproex Sodium (Depakote -) 250 mg PO BID [facility] Last Admin: 10/29/17 10:36 Dose: 250 mg Docusate Sodium (Colace -) 100 mg PO DAILY [facility] Last Admin: 10/29/17 09:24 Dose: 100 mg Gabapentin (Neurontin -) 600 mg PO TID [facility] Last Admin: 10/29/17 05:58 Dose: 600 mg Heparin Sodium (Porcine) (Heparin -) 5,000 unit SQ TID [facility] Last Admin: 10/29/17 05:58 Dose: 5,000 unit Insulin Aspart (Novolog Vial Sliding Scale -) 1 vial SQ [facility] PRN Reason: Protocol Last Admin: 10/29/17 11:45 Dose: 4 unit Lidocaine (Lidoderm Patch -) 1 patch TP DAILY [facility] Last Admin: 10/29/17 09:24 Dose: 1 patch Miscellaneous (Lidoderm Patch Removal) 1 each MC DAILY@2200 [facility] Last Admin: 10/28/17 21:21 Dose: 1 each Morphine Sulfate (Morphine Sulfate) 2 mg IVPUSH Q4H PRN PRN Reason: PAIN LEVEL 7 - 10 Last Admin: 10/29/17 08:21 Dose: 2 mg Mupirocin (Bactroban Ointment (For Decolonization) -) 1 applic NS BID [facility] Stop: 11/01/17 21:59 Last Admin: 10/29/17 10:36 Dose: Not Given Oxycodone HCl (Roxicodone -) 5 mg PO Q6H PRN PRN Reason: PAIN LEVEL 4 - 6 Last Admin: 10/29/17 06:03 Dose: 5 mg Quetiapine Fumarate (Seroquel -) 600 mg PO [facility] Last Admin: 10/28/17 21:51 Dose: 600 mg Risperidone (Risperdal -) 3 mg PO [facility] Last Admin: 10/28/17 21:21 Dose: 3 mg Trazodone HCl (Desyrel -) 300 mg PO HS [facility] Last Admin: 10/28/17 21:21 Dose: 300 mg - Objective Vital Signs: Vital Signs Temperature 97.7 F 10/29/17 05:30 Pulse Rate 91 H 10/28/17 22:00 Respiratory Rate 24 10/29/17 05:30 Blood Pressure 100/65 10/29/17 05:30 O2 Sat by Pulse Oximetry (%) 97 10/28/17 21:00 Constitutional: Yes: No Distress, Calm Neck: Yes: Supple Cardiovascular: Yes: Regular Rate and Rhythm Respiratory: Yes: Regular, Diminished Gastrointestinal: Yes: Normal Bowel Sounds, Soft, Abdomen, Obese Edema: No Labs: CBC, BMP 10/29/17 07:44 10/29/17 07:44 INR, PTT INR 1.13 (0.82-1.09) 10/27/17 17:00 - ....Imaging Chest X-ray: Report Reviewed (No gross PTX, bibasilar ATX) Problem List - Problems (1) Acute pneumothorax Code(s): J93.83 - OTHER PNEUMOTHORAX (2) Bipolar disorder Code(s): F31.9 - BIPOLAR DISORDER, UNSPECIFIED Qualifiers: Active/Remission status: remission status unspecified Qualified Code(s): F31.9 - Bipolar disorder, unspecified (3) Fall Code(s): W19.XXXA - UNSPECIFIED FALL, INITIAL ENCOUNTER Qualifiers: Encounter type: initial encounter Qualified Code(s): W19.XXXA - Unspecified fall, initial encounter (4) Hypertension Code(s): I10 - ESSENTIAL (PRIMARY) HYPERTENSION (5) Pneumothorax Code(s): J93.9 - PNEUMOTHORAX, UNSPECIFIED Qualifiers: Pneumothorax type: traumatic Encounter type: initial encounter Qualified Code(s): S27.0XXA - Traumatic pneumothorax, initial encounter (6) Ribs, multiple fractures Code(s): S22.49XA - MULTIPLE FRACTURES OF RIBS, UNSP SIDE, INIT FOR CLOS FX Qualifiers: Encounter type: initial encounter Fracture type: closed Laterality: right Qualified Code(s): S22.41XA - Multiple fractures of ribs, right side, initial encounter for closed fracture (7) Diabetes Code(s): E11.9 - TYPE 2 DIABETES MELLITUS WITHOUT COMPLICATIONS Qualifiers: Diabetes mellitus type: type 2 Diabetes mellitus intermediate frame tender insulin use: with skilled nursing use Assessment/Plan 10/28/2017 Echo: TDS, normal LV size and fxn, tr TR 1. s/p mechanical fall, syncope less likely 2. Traumatic Right Rib Fractures 3. Right Pneumothorax on O2 4. Acute Kidney Injury improved 5. HTN 6. Insulin-dependent Type 2 DM not at goal control 7. Bipolar Disorder P: 1. Pneumothorax too small for intervention and improving per CXR 2. Continue supplemental O2 to aid in nitrogen washout 3. Analgesia as needed, incentive spirometry 4. DVT prophylaxis, PT as tolerated
--- NOTE | 2017-10-29 12:20 | CONSULT ---
Consult - text type - Consultation Consultation Note: FULL CONSULT DICTATED IMP: S/P LEFT TKR DOING WELL PLAN: NTD, WBAT,F/U OUTPATIENT
--- NOTE | 2017-10-29 12:47 | PN ---
Progress Note (short form) - Note Progress Note: Reviewed charts, films, labs, and vs. No major event o/n. c/o right chest wall pain and sob. no f/c, cough, sputum production, hemoptysis. CBC, BMP 10/29/17 07:44 10/29/17 07:44 Intake & Output 10/26/17 10/27/17 10/28/17 10/29/17 23:59 23:59 23:59 23:59 Intake Total 1300 250 Output Total 450 1350 400 Balance -450 -50 -150 Weight 119.748 kg 120.202 kg 119.249 kg Vital Signs (72 hours) 10/27/17 10/27/17 10/27/17 06:44 07:30 08:28 Temperature 98.1 F Pulse Rate 102 H Pulse Rate [ 86 Apical] Respiratory 18 24 Rate Blood Pressure 90/63 Blood Pressure 114/81 [Left Arm] O2 Sat by Pulse 93 L 99 100 Oximetry (%) 10/27/17 10/27/17 10/27/17 10:26 10:57 13:40 Temperature 98.7 F 98.0 F Pulse Rate 80 Pulse Rate [ 85 Apical] Respiratory 22 22 Rate Blood Pressure 139/57 Blood Pressure 95/68 [Left Arm] O2 Sat by Pulse 100 100 Oximetry (%) 10/27/17 10/27/17 10/27/17 19:00 20:02 21:00 Temperature 98.4 F 98.6 F Pulse Rate 83 73 Pulse Rate [ Apical] Respiratory 22 Rate Blood Pressure 155/85 140/96 Blood Pressure [Left Arm] O2 Sat by Pulse 100 Oximetry (%) 10/27/17 10/28/17 10/28/17 22:00 00:00 02:00 Temperature 98.2 F 98.5 F Pulse Rate 75 72 Pulse Rate [ Apical] Respiratory 20 20 Rate Blood Pressure 160/91 142/69 Blood Pressure [Left Arm] O2 Sat by Pulse Oximetry (%) 10/28/17 10/28/17 10/28/17 04:00 04:36 06:00 Temperature 98.3 F Pulse Rate 74 74 73 Pulse Rate [ Apical] Respiratory 20 22 22 Rate Blood Pressure 142/69 178/88 166/85 Blood Pressure [Left Arm] O2 Sat by Pulse Oximetry (%) 10/28/17 10/28/17 10/28/17 08:00 09:00 10:00 Temperature Pulse Rate 74 75 Pulse Rate [ Apical] Respiratory 22 15 Rate Blood Pressure 158/80 142/91 Blood Pressure [Left Arm] O2 Sat by Pulse 98 Oximetry (%) 10/28/17 10/28/17 10/28/17 10:38 12:00 14:00 Temperature 98.2 F 98.6 F Pulse Rate 76 74 74 Pulse Rate [ Apical] Respiratory 15 15 15 Rate Blood Pressure 150/79 146/80 149/76 Blood Pressure [Left Arm] O2 Sat by Pulse Oximetry (%) 10/28/17 10/28/17 10/28/17 16:00 21:00 22:00 Temperature 98.0 F 99.2 F Pulse Rate 84 91 H Pulse Rate [ Apical] Respiratory 18 20 20 Rate Blood Pressure 149/90 148/91 Blood Pressure [Left Arm] O2 Sat by Pulse 97 Oximetry (%) 10/29/17 10/29/17 02:00 05:30 Temperature 98.0 F 97.7 F Pulse Rate Pulse Rate [ Apical] Respiratory 24 24 Rate Blood Pressure 133/75 100/65 Blood Pressure [Left Arm] O2 Sat by Pulse Oximetry (%) a/p 51 yo, male, s/p traumatic fall resulted in right rib fracture and pneumothorax. Stable clinically and radiologically. 1. cont supp care 2. pain control. consider acute pain service. 3. oob to chair/amb with pt, aggressive pulm toilet, chest pt, IS X10/hr Problem List - Problems (1) Pneumothorax Code(s): J93.9 - PNEUMOTHORAX, UNSPECIFIED Qualifiers: Pneumothorax type: traumatic Encounter type: initial encounter Qualified Code(s): S27.0XXA - Traumatic pneumothorax, initial encounter (2) Ribs, multiple fractures Code(s): S22.49XA - MULTIPLE FRACTURES OF RIBS, UNSP SIDE, INIT FOR CLOS FX Qualifiers: Encounter type: initial encounter Fracture type: closed Laterality: right Qualified Code(s): S22.41XA - Multiple fractures of ribs, right side, initial encounter for closed fracture
--- NOTE | 2017-10-29 13:09 | CONS ---
DATE OF CONSULTATION: 10/29/2017 ORTHOPEDIC CONSULTATION HISTORY OF PRESENT ILLNESS: Patient is a 51-year-old male admitted to the hospital with a pneumothorax status post fall with multiple rib fractures. Orthopedic consultation was requested to evaluate his left knee. Left knee is status post total knee replacement by me about 8 months ago. He is having some weakness in the leg and just would like it checked out. PHYSICAL EXAMINATION: EXTREMITIES: He has excellent range of motion, 0 to 125 degrees. Incisions well healed. Calf is soft, nontender. Completely stable varus/valgus, anterior/posterior. Good motion hip, knee, ankle, and toes. Otherwise, neurovascularly intact. IMPRESSION/PLAN: Doing quite well with the left knee. Nothing to do at this time. Continue strengthening exercise and follow up in my office upon discharge. NIK REYNOLDS M.D. [id number]
--- NOTE | 2017-10-29 15:28 | PN ---
Progress Note, Physician History of Present Illness: PULMONARY ALERT,C/O R SIDED CP,-SOB - Current Medication List Current Medications: Active Medications Acetaminophen (Tylenol -) 650 mg PO Q4H PRN PRN Reason: PAIN LEVEL 1 - 3 Chlorhexidine Gluconate (Hibiclens For Decolonization -) 1 applic TP HS [facility] Last Admin: 10/28/17 21:21 Dose: Not Given Divalproex Sodium (Depakote -) 250 mg PO BID [facility] Last Admin: 10/29/17 10:36 Dose: 250 mg Docusate Sodium (Colace -) 100 mg PO DAILY [facility] Last Admin: 10/29/17 09:24 Dose: 100 mg Gabapentin (Neurontin -) 600 mg PO TID [facility] Last Admin: 10/29/17 14:25 Dose: 600 mg Heparin Sodium (Porcine) (Heparin -) 5,000 unit SQ TID [facility] Last Admin: 10/29/17 14:25 Dose: 5,000 unit Insulin Aspart (Novolog Vial Sliding Scale -) 1 vial SQ [facility] PRN Reason: Protocol Last Admin: 10/29/17 11:45 Dose: 4 unit Lidocaine (Lidoderm Patch -) 1 patch TP DAILY [facility] Last Admin: 10/29/17 09:24 Dose: 1 patch Miscellaneous (Lidoderm Patch Removal) 1 each MC DAILY@2200 [facility] Last Admin: 10/28/17 21:21 Dose: 1 each Morphine Sulfate (Morphine Sulfate) 2 mg IVPUSH Q4H PRN PRN Reason: PAIN LEVEL 7 - 10 Last Admin: 10/29/17 14:25 Dose: 2 mg Mupirocin (Bactroban Ointment (For Decolonization) -) 1 applic NS BID [facility] Stop: 11/01/17 21:59 Last Admin: 10/29/17 10:36 Dose: Not Given Oxycodone HCl (Roxicodone -) 5 mg PO Q6H PRN PRN Reason: PAIN LEVEL 4 - 6 Last Admin: 10/29/17 06:03 Dose: 5 mg Quetiapine Fumarate (Seroquel -) 600 mg PO [facility] Last Admin: 10/28/17 21:51 Dose: 600 mg Risperidone (Risperdal -) 3 mg PO [facility] Last Admin: 10/28/17 21:21 Dose: 3 mg Trazodone HCl (Desyrel -) 300 mg PO HS [facility] Last Admin: 10/28/17 21:21 Dose: 300 mg - Objective Vital Signs: Vital Signs Temperature 98.3 F 10/29/17 15:13 Pulse Rate 94 H 10/29/17 15:13 Respiratory Rate 22 10/29/17 15:13 Blood Pressure 116/74 10/29/17 15:13 O2 Sat by Pulse Oximetry (%) 97 10/28/17 21:00 Constitutional: Yes: Well Nourished, Calm Eyes: Yes: WNL HENT: Yes: WNL Neck: Yes: WNL Cardiovascular: Yes: Regular Rate and Rhythm, S1, S2 Respiratory: Yes: Diminished Gastrointestinal: Yes: Normal Bowel Sounds, Soft Extremities: Yes: WNL Edema: No Labs: CBC, BMP 10/29/17 07:44 10/29/17 07:44 INR, PTT INR 1.13 (0.82-1.09) 10/27/17 17:00 - ....Imaging Chest X-ray: Report Reviewed, Image Reviewed Assessment/Plan ASSESSMENT AND PLAN: s/p Fall Traumatic Right Rib Fractures Right Pneumothorax Acute Kidney Injury HTN DM Bipolar Disorder r/o CVA - pneumothorax too small for intervention at this time - continue supplemental O2 to aid in nitrogen washout - pain control - incentive spirometry - chest tube placement if pneumothorax increases in size - DVT prophylaxis DR VALENTINE Problem List - Problems (1) Acute pneumothorax Code(s): J93.83 - OTHER PNEUMOTHORAX (2) Fall Code(s): W19.XXXA - UNSPECIFIED FALL, INITIAL ENCOUNTER (3) Hypertension Code(s): I10 - ESSENTIAL (PRIMARY) HYPERTENSION (4) Diabetes Code(s): E11.9 - TYPE 2 DIABETES MELLITUS WITHOUT COMPLICATIONS (5) Bipolar disorder Code(s): F31.9 - BIPOLAR DISORDER, UNSPECIFIED (6) Ribs, multiple fractures Code(s): S22.49XA - MULTIPLE FRACTURES OF RIBS, UNSP SIDE, INIT FOR CLOS FX Qualifiers: Encounter type: initial encounter Fracture type: closed Laterality: right Qualified Code(s): S22.41XA - Multiple fractures of ribs, right side, initial encounter for closed fracture
[2017-10-29] MEDS ORDERED: traZODone HCL 50 MG TABLET (FP) ONE (21:55)
[2017-10-29] MEDS: risperiDONE 1 MG TABLET (FP) PO SCH (22:01)
[2017-10-29] MEDS: CHLORHEXIDINE GLUCONATE 4% CLEANSER FOR DECOLONIZATION TP SCH (22:03)
[2017-10-29] MEDS: LIDOCAINE PATCH REMOVAL MC SCH (22:03)
[2017-10-29] MEDS: traZODone HCL 100 MG TABLET (FP) PO SCH (22:03)
[2017-10-29] MEDS: QUEtiapine FUMARATE 200 MG TABLET PO SCH (22:04)
--- NOTE | 2017-10-30 02:22 | CONSULT ---
Consult Consult Specialty:: ENDOCRINE Referred by:: YASMINE ALLEN NP Reason for Consultation:: DIABETES MELLITUS - History of Present Illness Chief Complaint: FALL INJURY AND RIB PAIN History of Present Illness: 51-year-old male with history of morbid obesity, DM, and bipolar disorder who presented to [facility] ED after a fall yesterday. His workup including chest x-ray and CT chest showed multiple right rib fractures and pneumothorax. He reports moderate to severe right chest wall pain and mild shortness of breath. 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: Peripheral Neuropathy Cardio/Vascular: Yes: CAD (POSITIVE STRESS TEST 2013), HTN, Hyperlipdemia Pulmonary: Yes: COPD Gastrointestinal: Yes: GERD Psych: Yes: Bipolar Musculoskeletal: Yes: Osteoarthritis Endocrine: Yes: Diabetes Mellitus - Alcohol/Substance Use Hx Alcohol Use: No - Smoking History Smoking history: Never smoked Have you smoked in the past 12 months: No Aproximately how many cigarettes per day: 1 - Social History Usual Living Arrangement: Other (and with cousin) ADL: Independent Occupation: DISABLED History of Recent Travel: No Home Medications - Allergies Allergies/Adverse Reactions: Allergies Allergy/AdvReac Type Severity Reaction Status Date / Time haloperidol [From Haldol] Allergy Severe MUSCLE Verified 10/27/17 06:44 SPASMS haloperidol lactate AdvReac Severe MUSCLE Verified 10/27/17 06:44 [From Haldol] SPASMS - Home Medications Home Medications: Ambulatory Orders Divalproex [Depakote -] 250 mg PO BID 11/25/13 Gabapentin [Neurontin] 600 mg PO TID 11/25/13 Insuln Asp Prt/Insulin Aspart [Novolog Mix 70-30 Flexpen Syrn] 25 unit SQ [facility] 11/25/13 Insuln Asp Prt/Insulin Aspart [Novolog Mix 70-30 Flexpen Syrn] 40 unit SQ ACBK 11/25/13 Quetiapine Fumarate [Seroquel -] 300 mg PO BID 11/25/13 Trazodone HCl [Desyrel -] 300 mg PO HS 11/25/13 Dexlansoprazole [Dexilant] 60 mg PO DAILY 02/04/17 Risperidone [Risperdal] 3 mg PO DAILY 02/04/17 Oxycodone HCl/Acetaminophen [Percocet 5-325 mg Tablet -] 1 - 2 tab PO Q6H #60 tab MDD 6 02/17/17 Family Disease History - Family Disease History Family Disease History: CA: Father, Mother Review of Systems - Review of Systems Constitutional: reports: Weakness Eyes: reports: No Symptoms HENT: reports: No Symptoms Neck: reports: No Symptoms Cardiovascular: reports: Shortness of Breath Respiratory: reports: Exercise Intolerance, SOB on Exertion Gastrointestinal: reports: Bloating, Constipation Genitourinary: reports: No Symptoms Breasts: reports: No Symptoms Reported Musculoskeletal: reports: No Symptoms Integumentary: reports: No Symptoms Neurological: reports: Unsteady Gait, Weakness Endocrine: reports: Unexplained Weight Gain Physical Exam Vital Signs: Vital Signs Temperature 98.7 F 10/29/17 22:59 Pulse Rate 94 H 10/29/17 22:59 Respiratory Rate 22 10/29/17 22:59 Blood Pressure 112/72 10/29/17 22:59 O2 Sat by Pulse Oximetry (%) 97 10/29/17 21:00 Constitutional: Yes: Calm Eyes: Yes: EOM Intact HENT: Yes: Normocephalic Neck: Yes: Trachea Midline Cardiovascular: Yes: Regular Rate and Rhythm Respiratory: Yes: Rhonchi, SOB, Tachypnea Gastrointestinal: Yes: Abdomen, Obese ...Rectal Exam: Yes: Deferred Renal/: Yes: WNL Breast(s): Yes: WNL Musculoskeletal: Yes: Joint Swelling, Muscle Weakness Extremities: Yes: WNL Edema: No Neurological: Yes: Alert, Oriented Labs: CBC, BMP 10/29/17 07:44 10/29/17 07:44 Problem List - Problems (1) Acute pneumothorax Code(s): J93.83 - OTHER PNEUMOTHORAX (2) Bipolar disorder Code(s): F31.9 - BIPOLAR DISORDER, UNSPECIFIED Qualifiers: Active/Remission status: remission status unspecified Qualified Code(s): F31.9 - Bipolar disorder, unspecified (3) Fall Code(s): W19.XXXA - UNSPECIFIED FALL, INITIAL ENCOUNTER Qualifiers: Encounter type: initial encounter Qualified Code(s): W19.XXXA - Unspecified fall, initial encounter (4) Hypertension Code(s): I10 - ESSENTIAL (PRIMARY) HYPERTENSION (5) Pneumothorax Code(s): J93.9 - PNEUMOTHORAX, UNSPECIFIED Qualifiers: Pneumothorax type: traumatic Encounter type: initial encounter Qualified Code(s): S27.0XXA - Traumatic pneumothorax, initial encounter (6) Ribs, multiple fractures Code(s): S22.49XA - MULTIPLE FRACTURES OF RIBS, UNSP SIDE, INIT FOR CLOS FX Qualifiers: Encounter type: initial encounter Fracture type: closed Laterality: right Qualified Code(s): S22.41XA - Multiple fractures of ribs, right side, initial encounter for closed fracture Assessment/Plan Current Active Problems Acute pneumothorax (Acute) Bipolar disorder (Acute) CVA (cerebrovascular accident) (Acute) Diabetes (Acute) Fall (Acute) Hypertension (Acute) Pneumothorax (Acute) Ribs, multiple fractures (Acute) Abnormal Lab Results 10/29/17 07:44 Sodium 135 L Anion Gap 7 L Random Glucose 204 H AST 14 L D Laboratory Results - last 24 hr 10/29/17 10/29/17 10/29/17 03:01 05:38 07:44 WBC 9.8 RBC 4.82 Hgb 14.8 Hct 42.2 MCV 87.7 MCH 30.6 MCHC 34.9 RDW 12.6 Plt Count 152 MPV 10.0 Neutrophils % 69.7 Lymphocytes % 20.6 Monocytes % 8.6 Eosinophils % 0.6 Basophils % 0.5 Sodium Potassium Chloride Carbon Dioxide Anion Gap BUN Creatinine Creat Clearance w eGFR POC Glucometer 219 234 Random Glucose Calcium Total Bilirubin AST ALT Alkaline Phosphatase Total Protein Albumin 10/29/17 10/29/17 10/29/17 07:44 11:40 17:07 WBC RBC Hgb Hct MCV MCH MCHC RDW Plt Count MPV Neutrophils % Lymphocytes % Monocytes % Eosinophils % Basophils % Sodium 135 L Potassium 4.4 Chloride 98 Carbon Dioxide 30 Anion Gap 7 L BUN 15 Creatinine 1.0 Creat Clearance w eGFR > 60 POC Glucometer 223 276 Random Glucose 204 H Calcium 8.5 Total Bilirubin 0.7 AST 14 L D ALT 39 D Alkaline Phosphatase 48 Total Protein 7.1 Albumin 3.4 10/29/17 21:57 WBC RBC Hgb Hct MCV MCH MCHC RDW Plt Count MPV Neutrophils % Lymphocytes % Monocytes % Eosinophils % Basophils % Sodium Potassium Chloride Carbon Dioxide Anion Gap BUN Creatinine Creat Clearance w eGFR POC Glucometer 190 Random Glucose Calcium Total Bilirubin AST ALT Alkaline Phosphatase Total Protein Albumin plan bgm qid novolog insulin dose levemir 25 unit am levemir 15 units hs
[2017-10-30] MEDS: oxyCODONE HCL 5 MG TABLET PO PRN ×2 (06:32→14:41)
[2017-10-30] MEDS: GABAPENTIN 300 MG CAPSULE (FP) PO SCH (06:33)
[2017-10-30] MEDS: HEPARIN NA (PORCINE) 5,000 UNITS/ML 1ML VIAL SQ SCH ×2 (06:33→14:42)
[2017-10-30] MEDS: INSULIN SLIDING SCALE (NOVOLOG) 1 VIAL SQ SCH (06:34)
[2017-10-30] MEDS ORDERED: INSULIN (NOVOLOG) ASPART 100 UNITS/ML 10ML VIAL ONE (06:39)
[2017-10-30] MEDS ORDERED: INSULIN DETEMIR 100 UNITS/ML MDV SQ SCH ×2 (07:00→22:00)
[2017-10-30] MEDS ORDERED: LIDOCAINE PATCH REMOVAL MC SCH ×2 (07:40→22:00)
--- NOTE | 2017-10-30 09:57 | DS ---
Physical Examination Vital Signs: Vital Signs Temperature 98.3 F 10/30/17 06:16 Pulse Rate 111 H 10/30/17 06:16 Respiratory Rate 19 10/30/17 06:16 Blood Pressure 120/75 10/30/17 06:16 O2 Sat by Pulse Oximetry (%) 97 10/29/17 21:00 Cardiovascular: Yes: S1, S2 Respiratory: Yes: Regular, CTA Bilaterally Gastrointestinal: Yes: Normal Bowel Sounds, Soft Labs: CBC, BMP 10/29/17 07:44 10/29/17 07:44 Discharge Summary Reason For Visit: ACUTE PNEUMOTHORAX,CVA Current Active Problems Acute pneumothorax (Acute) Bipolar disorder (Acute) CVA (cerebrovascular accident) (Acute) Diabetes (Acute) Fall (Acute) Hypertension (Acute) Pneumothorax (Acute) Ribs, multiple fractures (Acute) Hospital Course: - Problems (1) Acute pneumothorax Assessment/Plan: -Serial CXR's--NO PNEUMOTHORAX -pulmonary consult -nasal O2, maintain Spo2>90% Code(s): J93.83 - OTHER PNEUMOTHORAX (2) Fall Assessment/Plan: -Syncope? -Neurology consult- no intervention recommended at this time, no underlying neurology cause -Cardiology consult -Echo -Carotid Code(s): W19.XXXA - UNSPECIFIED FALL, INITIAL ENCOUNTER Qualifiers: Encounter type: initial encounter Qualified Code(s): W19.XXXA - Unspecified fall, initial encounter (3) Ribs, multiple fractures Assessment/Plan: -pain management -pulmonary consult -monitor change in pneumothorax Code(s): S22.49XA - MULTIPLE FRACTURES OF RIBS, UNSP SIDE, INIT FOR CLOS FX Qualifiers: Encounter type: initial encounter Fracture type: closed Laterality: right Qualified Code(s): S22.41XA - Multiple fractures of ribs, right side, initial encounter for closed fracture (4) Diabetes Assessment/Plan: uncontrolled -diabetic diet -BGM -Endocrinology consult -Insulin coverage Code(s): E11.9 - TYPE 2 DIABETES MELLITUS WITHOUT COMPLICATIONS Qualifiers: Diabetes mellitus type: 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 (5) Leg Weakness Assessment/Plan: -xray of ls -emg -pt -ortho Condition: Improved - Instructions Referrals: Wes Worthy MD [Primary Care Provider] - Disposition: HOME - Home Medications Comprehensive Discharge Medication List: Ambulatory Orders Divalproex [Depakote -] 250 mg PO BID 11/25/13 Gabapentin [Neurontin] 600 mg PO TID 11/25/13 Insuln Asp Prt/Insulin Aspart [Novolog Mix 70-30 Flexpen Syrn] 25 unit SQ ACDIN 11/25/13 Insuln Asp Prt/Insulin Aspart [Novolog Mix 70-30 Flexpen Syrn] 40 unit SQ ACBK 11/25/13 Quetiapine Fumarate [Seroquel -] 300 mg PO BID 11/25/13 Trazodone HCl [Desyrel -] 300 mg PO HS 11/25/13 Dexlansoprazole [Dexilant] 60 mg PO DAILY 02/04/17 Risperidone [Risperdal -] 3 mg PO DAILY 02/04/17 Oxycodone HCl/Acetaminophen [Percocet 5-325 mg Tablet] 1 - 2 tab PO Q6H #60 tab MDD 6 02/17/17 Docusate Sodium [Colace -] 100 mg PO DAILY capsule 10/30/17 Lidocaine 5% Patch [Lidoderm -] 1 patch TP DAILY #30 patch 10/30/17
[2017-10-30] MEDS ORDERED: LIDOCAINE 5% TOPICAL PATCH TP SCH (10:00)
[2017-10-30] MEDS: DOCUSATE SODIUM 100 MG CAPSULE (FP) PO SCH (10:49)
[2017-10-30] MEDS ORDERED: INSULIN SLIDING SCALE (NOVOLOG) 1 VIAL SQ SCH (11:00)
[2017-10-30 11:24] VITALS: BP 131/88; PULSE 89; TEMP 98.4
--- NOTE | 2017-10-30 12:50 | PN ---
Progress Note (short form) - Note Progress Note: PULMONARY Pain controlled with current regimen. Mild shortness of breath. No pneumothorax on AM CXR. Last Vital Signs Temp Pulse Resp BP Pulse Ox 98.4 F 89 20 131/88 97 10/30/17 10:00 10/30/17 10:00 10/30/17 10:00 10/30/17 10:00 10/29/17 21:00 Gen: NAD at rest Heart: RRR Lung: decreased breath sounds at the bases Abd: soft, nontender Ext: no edema CBC, BMP 10/29/17 07:44 10/29/17 07:44 Active Medications Acetaminophen (Tylenol -) 650 mg PO Q4H PRN PRN Reason: PAIN LEVEL 1 - 3 Docusate Sodium (Colace -) 100 mg PO DAILY [facility] Last Admin: 10/30/17 10:49 Dose: 100 mg Gabapentin (Neurontin -) 600 mg PO TID [facility] Heparin Sodium (Porcine) (Heparin -) 5,000 unit SQ TID [facility] Last Admin: 10/30/17 06:33 Dose: 5,000 unit Insulin Aspart (Novolog Vial Sliding Scale -) 1 vial SQ [facility] PRN Reason: Protocol Last Admin: 10/30/17 11:56 Dose: 6 unit Insulin Detemir (Levemir Vial) 25 units SQ AM [facility] Last Admin: 10/30/17 06:32 Dose: 25 units Insulin Detemir (Levemir Vial) 15 units SQ HS [facility] Lidocaine (Lidoderm Patch -) 1 patch TP DAILY [facility] Last Admin: 10/30/17 10:49 Dose: 1 patch Miscellaneous (Lidoderm Patch Removal) 1 each MC DAILY@2200 [facility] Oxycodone HCl (Roxicodone -) 5 mg PO Q6H PRN PRN Reason: PAIN LEVEL 4 - 6 Last Admin: 10/30/17 06:32 Dose: 5 mg Quetiapine Fumarate (Seroquel -) 600 mg PO [facility] Last Admin: 10/29/17 22:04 Dose: 600 mg Risperidone (Risperdal -) 3 mg PO HS [facility] Last Admin: 10/29/17 22:01 Dose: 3 mg Trazodone HCl (Desyrel -) 300 mg PO [facility] A/P s/p Fall Traumatic Right Rib Fractures Right Pneumothorax Acute Kidney Injury HTN DM Bipolar Disorder r/o CVA - pain control - incentive spirometry - DVT prophylaxis - can d/c home from pulmonary standpoint Problem List - Problems (1) Acute pneumothorax Code(s): J93.83 - OTHER PNEUMOTHORAX (2) Fall Code(s): W19.XXXA - UNSPECIFIED FALL, INITIAL ENCOUNTER Qualifiers: Encounter type: initial encounter Qualified Code(s): W19.XXXA - Unspecified fall, initial encounter (3) Hypertension Code(s): I10 - ESSENTIAL (PRIMARY) HYPERTENSION (4) Diabetes Code(s): E11.9 - TYPE 2 DIABETES MELLITUS WITHOUT COMPLICATIONS Qualifiers: Diabetes mellitus type: type 2 Diabetes mellitus care home insulin use: with care home use (5) Bipolar disorder Code(s): F31.9 - BIPOLAR DISORDER, UNSPECIFIED Qualifiers: Active/Remission status: remission status unspecified Qualified Code(s): F31.9 - Bipolar disorder, unspecified (6) Ribs, multiple fractures Code(s): S22.49XA - MULTIPLE FRACTURES OF RIBS, UNSP SIDE, INIT FOR CLOS FX Qualifiers: Encounter type: initial encounter Fracture type: closed Laterality: right Qualified Code(s): S22.41XA - Multiple fractures of ribs, right side, initial encounter for closed fracture
--- NOTE | 2017-10-30 13:37 | PN ---
Progress Note (short form) - Note Progress Note: Chief Complaint: Events noted, notes reviewed, complaining of persistent chest discomfort, denies any dyspnea History of Present Illness: Seen and examined. Events noted, notes reviewed, complaining of persistent chest discomfort, denies any dyspnea Echocardiography dated 10/28/2017 revealed normal LV size and funtion, trace TR - Current Medication List Current Medications Acetaminophen (Tylenol -) 650 mg PO Q4H PRN PRN Reason: PAIN LEVEL 1 - 3 Docusate Sodium (Colace -) 100 mg PO DAILY [facility] Last Admin: 10/30/17 10:49 Dose: 100 mg Gabapentin (Neurontin -) 600 mg PO TID [facility] Heparin Sodium (Porcine) (Heparin -) 5,000 unit SQ TID [facility] Last Admin: 10/30/17 06:33 Dose: 5,000 unit Insulin Aspart (Novolog Vial Sliding Scale -) 1 vial SQ ACHS [facility] PRN Reason: Protocol Last Admin: 10/30/17 11:56 Dose: 6 unit Insulin Detemir (Levemir Vial) 25 units SQ AM [facility] Last Admin: 10/30/17 06:32 Dose: 25 units Insulin Detemir (Levemir Vial) 15 units SQ HS [facility] Lidocaine (Lidoderm Patch -) 1 patch TP DAILY [facility] Last Admin: 10/30/17 10:49 Dose: 1 patch Miscellaneous (Lidoderm Patch Removal) 1 each MC DAILY@2200 [facility] Oxycodone HCl (Roxicodone -) 5 mg PO Q6H PRN PRN Reason: PAIN LEVEL 4 - 6 Last Admin: 10/30/17 06:32 Dose: 5 mg Quetiapine Fumarate (Seroquel -) 600 mg PO [facility] Last Admin: 10/29/17 22:04 Dose: 600 mg Risperidone (Risperdal -) 3 mg PO HS [facility] Last Admin: 10/29/17 22:01 Dose: 3 mg Trazodone HCl (Desyrel -) 300 mg PO [facility] - Objective Vital Signs: Last Vital Signs Temp Pulse Resp BP Pulse Ox 98.4 F 89 20 131/88 97 10/30/17 10:00 10/30/17 10:00 10/30/17 10:00 10/30/17 10:00 10/29/17 21:00 Intake & Output 10/27/17 10/28/17 10/29/1718 23:59 23:59 23:59 23:59 Intake Total 1300 900 925 Output Total 450 1350 1100 1400 Balance -450 -50 -200 -475 Weight 264 lb 265 lb 262 lb 14.4 oz 264 lb 2 oz Constitutional: No Distress, Calm Neck: Supple Negative JVD NO Bruit Cardiovascular: S1 S2 Regular Rate and Rhythm Respiratory: Diminished at the Bases Gastrointestinal: Soft Benign Normal Bowel Sounds Ext: No Edema Labs: CBC, BMP 10/29/17 07:44 10/29/17 07:44 Assessment/Plan ASSESSMENT: 1. Post mechanical fall, syncope less likely 2. Traumatic Right Rib Fractures 3. Right Pneumothorax 4. HTN 5. IDDM 6. Acute Kidney Injury, resolved 7. Bipolar Disorder PLAN: 1. Recommend initiation of ACEI or ARBS can be done as outpatient 2. Recommend intiation of statin therapy after obtaining lipid profile can be done as outpatient 3. Recommend the addition of ASA unless it is contraindicated 4. Plan to D/C home as per the primary team and advised F/U in the office Jeyson Gould MD
[2017-10-30] MEDS ORDERED: GABAPENTIN 300 MG CAPSULE (FP) PO SCH (14:00)
[2017-10-30] MEDS ORDERED: traZODone HCL 100 MG TABLET (FP) PO SCH (22:00)
== END 2017-10-30 15:40 | disposition home or self-care (01) | DRG 184 ==
LOC: JER 06:25 → JERBED 10:26 → JICU 14:05 → J6S 10-28 18:55
PROVIDERS: ADMIT Family Medicine; ATTEND Family Medicine
DX: S22.41XA Multiple fractures of ribs, right side, initial encounter for closed fracture (principal); Z68.41 Body mass index [BMI] 40.0-44.9, adult; I45.2 Bifascicular block; N17.9 Acute kidney failure, unspecified; S27.0XXA Traumatic pneumothorax, initial encounter; I10 Essential (primary) hypertension; E66.01 Morbid (severe) obesity due to excess calories; E11.42 Type 2 diabetes mellitus with diabetic polyneuropathy; F31.9 Bipolar disorder, unspecified; I45.10 Unspecified right bundle-branch block; J44.9 Chronic obstructive pulmonary disease, unspecified; K21.9 Gastro-esophageal reflux disease without esophagitis; I25.10 Atherosclerotic heart disease of native coronary artery without angina pectoris; W18.30XA Fall on same level, unspecified, initial encounter; Y92.009 Unspecified place in unspecified non-institutional (private) residence as the place of occurrence of the external cause
CPT/HCPCS: 36415; 70450-TC; 71045-TC-FY; 71046-TC-FY; 71250-TC; 72100-TC-FY; 72125-TC; 76775-TC; 80053; 80061; 80164; 81003; 82436; 82550; 82553; 82962; 83036; 83721; 83735; 84100; 84133; 84156; 84300; 84484; 85025; 85610; 86850; 86900; 86901; 93005; 93010; 93306-TC; 93880-TC; 94010; 95860-TC; 97161-GP; 99285-25; J1644; J2794

== ENCOUNTER 2020-04-10 13:05 | Emergency (ER) | payer OTHER ==
[2020-04-10 13:25] VITALS: PULSE 74; TEMP 98; BMI 41.0
--- NOTE | 2020-04-10 13:35 | PDOC ---
Attending Attestation - Resident Resident Name: Piter Hough - ED Attending Attestation I have performed the following: I have examined & evaluated the patient, The case was reviewed & discussed with the resident, I agree w/resident's findings & plan, Exceptions are as noted - HPI HPI: 04/10/20 13:49 Increasing shortness of breath over the last month, primarily on exertion, apparent after climbing several stairs. Also increased bilateral leg edema. No chest pain or palpitations suggestive of acute cardiac event. No fever or cough suggestive of pulmonary infection. Significant past medical history of insulin-dependent diabetes, hypertension, GERD, and bipolar illness takes multiple medications including insulin, cardiac medication, as well as psychiatric medication. Also takes pain relievers. Medications include: Insulin, Depakote, Seroquel, trazodone, risperidone, gabapentin, and oxycodone. - Physicial Exam PE: 04/10/20 17:36 Afebrile, vital signs normal. No tachypnea or dyspnea at rest Obese but well-appearing male in no distress. HEENT normal Neck supple without bruit mass or nodes Lungs: Breath sounds distant bilaterally. No wheezes rales or rhonchi. No tachypnea or dyspnea. No splinting with deep inspiration. CV S1-S2 normal without murmur rub or gallop pulses full and symmetric no JVD 1+ symmetric edema bilaterally, no erythema warmth or tenderness Abdomen benign EKG: Bifascicular block, but no change from [address]-T wave changes CBC, chemistries including cardiac enzymes without significant abnormalities except for elevated BNP - Medical Decision Making 04/10/20 17:38 Assessment: Mildly progressive CHF. No acute respiratory distress Plan: Begin small dose of diuretic every other day and titrate as needed by [facility] physician. Return to ER if shortness of breath worsens or other symptoms including chest pain fever, or cough develop. Fully ambulatory in no distress at discharge Discharge - Discharge Information Problems reviewed: Yes Clinical Impression/Diagnosis: Heart failure Qualifiers: Heart failure type: unspecified Heart failure chronicity: acute Qualified Code(s): I50.9 - Heart failure, unspecified Condition: Fair Disposition: HOME - Additional Discharge Information Prescriptions: Furosemide [Lasix] 20 mg PO ONCE 7 Days #14 tablet - Follow up/Referral - Patient Discharge Instructions Additional Instructions: You were seen in the ER for shortness of breath. Your EKG and chest x-ray did not show any emergent changes. Your labs showed evidence of heart failure. We are sending you home on a water pill that you should take every other day. Please follow up with your primary doctor within one week. Please return to the ER for continued or worsening symptoms, if you have fever, cannot breath, or any other reason. - Post Discharge Activity
--- NOTE | 2020-04-10 13:42 | PDOC ---
History of Present Illness - General Chief Complaint: Shortness of Breath Stated Complaint: NEEDS INHALERS SOB FOR WEEKS Time Seen by Provider: 04/10/20 13:14 - History of Present Illness Initial Comments: 04/10/20 13:37 54yo M with PMH HTN, IDDM, GIOVANI, obesity, bipolar presents with SOB on exertion for three weeks. Patient states he has always felt SOB with exertion, which he attributes to his obesity, but states it has gotten much worse in the last few week. Reports SOB after just three stairs. Also has notices bilateral leg swelling in the same time frame. Denies orthopnea or paroxysmal dyspnea. Reports chronic lightheadedness when getting out of bed, which he attributes to his sedating psych meds. Reports a syncopal episode three weeks prior after bending over to pick something up. Denies chest pain, new cough, fever, palpitations. PMH: as above PSH: knee replacement, appendectomy ETOH: occasional Tobacco: 1 cigar per day x14 years Drugs: denies Medications: Divalproex [Depakote -] 250 mg PO BID 11/25/13 Gabapentin [Neurontin] 600 mg PO TID 11/25/13 Insuln Asp Prt/Insulin Aspart [Novolog Mix 70-30 Flexpen Syrn] 25 unit SQ ACDIN 11/25/13 Insuln Asp Prt/Insulin Aspart [Novolog Mix 70-30 Flexpen Syrn] 40 unit SQ ACBK 11/25/13 Quetiapine Fumarate [Seroquel -] 300 mg PO BID 11/25/13 Trazodone HCl [Desyrel -] 300 mg PO HS 11/25/13 Dexlansoprazole [Dexilant] 60 mg PO DAILY 02/04/17 Risperidone [Risperdal -] 3 mg PO DAILY 02/04/17 Oxycodone HCl/Acetaminophen [Percocet 5-325 mg Tablet] 1 - 2 tab PO Q6H #60 tab MDD 6 02/17/17 Docusate Sodium [Colace -] 100 mg PO DAILY capsule 10/30/17 Lidocaine 5% Patch [Lidoderm -] 1 patch TP DAILY #30 patch 10/30/17 Allergies Allergy/AdvReac Type Severity Reaction Status Date / Time haloperidol [From Haldol] Allergy Severe MUSCLE Verified 04/10/20 13:09 SPASMS haloperidol lactate AdvReac Severe MUSCLE Verified 04/10/20 13:09 [From Haldol] SPASMS ROS GENERAL/CONSTITUTIONAL: No fever or chills. No weakness. HEAD, EYES, EARS, NOSE AND THROAT: No change in vision. No ear pain or dis charge. No sore throat. CARDIOVASCULAR: No chest pain. shortness of breath RESPIRATORY: No cough, wheezing, or hemoptysis. GASTROINTESTINAL: No nausea, vomiting, diarrhea or constipation. GENITOURINARY: No dysuria, frequency, or change in urination. MUSCULOSKELETAL: No joint or muscle swelling or pain. No neck or back pain. SKIN: No rash NEUROLOGIC: No headache, vertigo, loss of consciousness, or change in strength/sensation. ENDOCRINE: No increased thirst. No abnormal weight change HEMATOLOGIC/LYMPHATIC: No anemia, easy bleeding, or history of blood clots. ALLERGIC/IMMUNOLOGIC: No hives or skin allergy. PE GENERAL: Awake, alert, and fully oriented, in no acute distress HEAD: No signs of trauma, normocephalic, atraumatic EYES: PERRLA, EOMI, sclera anicteric, conjunctiva clear ENT: Auricles normal inspection, hearing grossly normal, nares patent, oropharynx clear without exudates. Moist mucosa NECK: Normal ROM, supple, no lymphadenopathy, JVD, or masses LUNGS: No distress, speaks full sentences, clear to auscultation bilaterally HEART: Regular rate and rhythm, normal S1 and S2, no murmurs, rubs or gallops, peripheral pulses normal and equal bilaterally. ABDOMEN: Soft, nontender, normoactive bowel sounds. No guarding, no rebound. No masses EXTREMITIES : 1+ b/l LE pitting edema. No clubbing or cyanosis. NEUROLOGICAL: Normal speech, no focal sensorimotor deficits SKIN: Warm, Dry, normal turgor, no rashes or lesions noted Vital Signs Temp Pulse Resp BP Pulse Ox 98 F 74 20 109/82 98 04/10/20 13:06 04/10/20 13:04/10/20 13:04/10/20 13:04/10/20 13:06 54yo M with PMH HTN, IDDM, GIOVANI, obesity, bipolar presents with SOB on exertion for three weeks. Noted to have 1+ b/l LE pitting edema. DDx includes CHF, ACS, COPD. -EKG -CXR -CBC, CMP, cardiac enzymes, BNP EKG: NSR, rate 78, left axis deviation, RBBB, LAFB, QTc 494, poor r-wave progression, no ST-T changes. Largely unchanged from prior CXR: no acute pathology Labs: grossly normal, except an elevated BNP to 2085. CK-MB 4.7, but negative trop x1. Likely has heart failure. Mild symptoms, so will not admit. DC on 20mg lasix every other day with instructions to f/u with PCP for further workup and management. Past History - Medical History Allergies/Adverse Reactions: Allergies Allergy/AdvReac Type Severity Reaction Status Date / Time haloperidol [From Haldol] Allergy Severe MUSCLE Verified 04/10/20 13:09 SPASMS haloperidol lactate AdvReac Severe MUSCLE Verified 04/10/20 13:09 [From Haldol] SPASMS Home Medications: Ambulatory Orders Divalproex [Depakote -] 250 mg PO BID 11/25/13 Gabapentin [Neurontin] 600 mg PO TID 11/25/13 Insuln Asp Prt/Insulin Aspart [Novolog Mix 70-30 Flexpen Syrn] 25 unit SQ ACDIN 11/25/13 Insuln Asp Prt/Insulin Aspart [Novolog Mix 70-30 Flexpen Syrn] 40 unit SQ ACBK 11/25/13 Quetiapine Fumarate [Seroquel -] 300 mg PO BID 11/25/13 Trazodone HCl [Desyrel -] 300 mg PO HS 11/25/13 Dexlansoprazole [Dexilant] 60 mg PO DAILY 02/04/17 Risperidone [Risperdal -] 3 mg PO DAILY 02/04/17 Oxycodone HCl/Acetaminophen [Percocet 5-325 mg Tablet] 1 - 2 tab PO Q6H #60 tab MDD 6 02/17/17 Docusate Sodium [Colace -] 100 mg PO DAILY capsule 10/30/17 Lidocaine 5% Patch [Lidoderm -] 1 patch TP DAILY #30 patch 10/30/17 Furosemide [Lasix] 20 mg PO ONCE 7 Days #14 tablet 04/10/20 Anemia: No Asthma: No Cancer: Yes (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.) Cardiac Disorders: No CVA: No COPD: No CHF: No Dementia: No Diabetes: Yes (IDDM OVER 10 YEARS) GI Disorders: No Disorders: No HTN: No Hypercholesterolemia: No Liver Disease: No Psychiatric Problems: Yes (BIPOLAR) Seizures: No Thyroid Disease: No - Surgical History Abdominal Surgery: No Appendectomy: Yes Cardiac Surgery: No Cholecystectomy: No Lung Surgery: No Neurologic Surgery: No Orthopedic Surgery: No - Immunization History Immunization Up to Date: Yes - Psycho-Social/Smoking History Smoking History: Current every day smoker Have you smoked in the past 12 months: Yes Number of Cigarettes Smoked Daily: 1 Cigars Per Day: 1 Information on smoking cessation initiated: Yes 'Breaking Loose' booklet given: 02/28/15 - Substance Abuse Hx (Audit-C & DAST Scrn) How often the patient has a drink containing alcohol: Monthly or less Score: In Men: 4 or > Positive; In Women: 3 or > Positive: 1 Screen Result (Pos requires Nsg. Audit-10AR): Negative In the last yr the pt used illegal drug/Rx for NonMed reason: No Score: Yes response is considered Positive: 0 Screen Result (Positive result requires Nsg. DAST-10): Negative *Physical Exam - Vital Signs Last Vital Signs Temp Pulse Resp BP Pulse Ox 98 F 74 20 109/82 98 04/10/20 13:06 04/10/20 13:06 04/10/20 13:06 04/10/20 13:06 04/10/20 13:06 ED Treatment Course - LABORATORY CBC & Chemistry Diagram: 04/10/20 14:05 04/10/20 14:05 - RADIOLOGY Radiology Studies Ordered: Category Date Time Status CHEST PA & LAT [RAD] Stat Radiology 04/10/20 13:35 Ordered Discharge - Discharge Information Problems reviewed: Yes Clinical Impression/Diagnosis: Heart failure Qualifiers: Heart failure type: unspecified Heart failure chronicity: acute Qualified Code(s): I50.9 - Heart failure, unspecified Condition: Fair Disposition: HOME - Additional Discharge Information Prescriptions: Furosemide [Lasix] 20 mg PO ONCE 7 Days #14 tablet - Follow up/Referral - Patient Discharge Instructions Additional Instructions: You were seen in the ER for shortness of breath. Your EKG and chest x-ray did not show any emergent changes. Your labs showed evidence of heart failure. We are sending you home on a water pill that you should take every other day. Please follow up with your primary doctor within one week. Please return to the ER for continued or worsening symptoms, if you have fever, cannot breath, or any other reason. - Post Discharge Activity
[2020-04-10 14:32] VITALS: BP 130/76
[2020-04-10 14:51] LABS: LYMPH % 36.9 % (8-40); MCH 30.9 pg (25.7-33.7); MCHC 33.8 g/dl (32.0-35.9); MEAN CELL VOLUME 91.5 fl (80-96); MEAN PLT VOLUME 9.9 fl (7.5-11.1); NEUT % 48.3 % (42.8-82.8); PLATELET COUNT 151 K/MM3 (134-434); RBC 4.59 M/mm3 (4.00-5.60); WHITE BLOOD COUNT 4.6 K/mm3 (4.0-10.8)
[2020-04-10 14:54] LABS: EOS % 0.2 % (0-4.5); HEMOGLOBIN 14.2 GM/dl (11.7-16.9)
[2020-04-10 14:55] LABS: ALBUMIN 3.6 g/dl (3.4-5.0); BILIRUBIN,TOTAL 0.6 mg/dl (0.2-1); CALCIUM 8.3 mg/dl (8.5-10); CREATININE 0.9 mg/dl (0.55-1.3); POTASSIUM 4.4 mmol/L (3.5-5.1); TOT PROT 7.1 g/dl (6.4-8.2)
--- NOTE | 2020-04-10 15:33 | EKG ---
Test Reason : Blood Pressure : / mmHG Vent. Rate : 078 BPM Atrial Rate : 078 BPM P-R Int : 168 ms QRS Dur : 134 ms QT Int : 434 ms P-R-T Axes : 031 -70 -20 degrees QTc Int : 494 ms NORMAL SINUS RHYTHM RIGHT BUNDLE BRANCH BLOCK LEFT ANTERIOR FASCICULAR BLOCK BIFASCICULAR BLOCK ABNORMAL ECG Confirmed by MD RAYA, CORNELIO ([id number]) on 04/10/2020 3:32:59 PM Referred By: GEOVANNA CALDERON Confirmed By:CORNELIO DOS SANTOS MD
== END 2020-04-10 16:39 | disposition home or self-care (01) ==
LOC: FER 13:05
DX: I50.9 Heart failure, unspecified (principal)
CPT/HCPCS: 36415; 71046-TC-FY; 80053; 82550; 82553; 83880; 84484; 85025; 93005; 99285-25

== ENCOUNTER 2020-07-15 10:29 | Inpatient (IN) | payer OTHER ==
[2020-07-15] MEDS ORDERED: SODIUM CHLORIDE IV ONE (11:30)
[2020-07-15 12:02] LABS: BASO % 0.6 % (0-2.0); EOS % 0.2 % (0-4.5); HEMATOCRIT 39.9 % (35.4-49); HEMOGLOBIN 13.5 GM/dL (11.7-16.9); LYMPH % 19.2 % (8-40); MCH 30.9 pg (25.7-33.7); MCHC 33.7 g/dl (32.0-35.9); MEAN CELL VOLUME 91.7 fl (80-96); MEAN PLT VOLUME 10.4 fl (7.5-11.1); MONO % 10.4 % (3.8-10.2); NEUT % 69.6 % (42.8-82.8); PLATELET COUNT 125 K/MM3 (134-434); RBC 4.35 M/mm3 (4.00-5.60); RDW 13.9 % (11.9-15.9); WHITE BLOOD COUNT 4.9 K/mm3 (4.0-10.0)
[2020-07-15 12:27] LABS: INR 1.17 (0.83-1.09); PROTHROMBIN TIME (PATIENT) 14.1 SEC (9.7-13.0)
[2020-07-15 12:30] LABS: ACTIVATED PTT 34.2 SECONDS (25.2-36.5)
[2020-07-15] MEDS ORDERED: guaiFENesin/CODEINE 10 ML UNIT-DOSE CUPS PO ONE (12:37)
[2020-07-15 12:38] LABS: ALBUMIN 3.1 g/dl (3.4-5.0); BLOOD UREA NITROGEN 29.1 mg/dL (7-18); CREATININE 1.5 mg/dL (0.55-1.3); POTASSIUM 4.9 mmol/L (3.5-5.1)
[2020-07-15 12:42] LABS: BILIRUBIN,TOTAL 0.6 mg/dL (0.2-1); TOT PROT 6.9 g/dl (6.4-8.2)
[2020-07-15] MEDS ORDERED: guaiFENesin/CODEINE 5 ML UNIT-DOSE CUPS PO ONE (12:55)
[2020-07-15] MEDS ORDERED: FUROSEMIDE 40 MG/4 ML INJECTABLE VIAL ONE (12:56)
[2020-07-15] MEDS ORDERED: ASPIRIN 325 MG TABLET PO ONE (13:08)
[2020-07-15] MEDS ORDERED: ASPIRIN 325 MG ENTERIC COATED TABLET (FP) ONE ×2 (13:23→13:32)
[2020-07-15 15:25] LABS: EPI CELLS 12 /uL (0-25.1); HYALINE CASTS 3 /uL (0-3.1); URINE APPEARANCE CLEAR; URINE BACTERIA 20 /uL (0-1359); URINE BILIRUBIN NEGATIVE (NEGATIVE); URINE COLOR YELLOW; URINE GLUCOSE (UA) 2+ (NEGATIVE); URINE KETONE TRACE (NEGATIVE); URINE LEUK ESTERASE NEGATIVE (NEGATIVE); URINE NITRITE NEGATIVE (NEGATIVE); URINE PROTEIN 1+ (NEGATIVE); URINE RBC 6 /uL (0-23.9); URINE WBC 7 /uL (0-25.8)
[2020-07-15] MEDS ORDERED: INSULIN SLIDING SCALE (NOVOLOG) 1 VIAL SQ ONE (19:04)
[2020-07-15] MEDS: INSULIN SLIDING SCALE (NOVOLOG) 1 VIAL SQ SCH ×2 (19:13→22:53)
[2020-07-15] MEDS ORDERED: QUEtiapine FUMARATE 300 MG TABLET PO ONE (20:17)
[2020-07-15] MEDS ORDERED: QUEtiapine FUMARATE 100 MG TABLET (FP) ONE (20:20)
[2020-07-15] MEDS: QUEtiapine FUMARATE 300 MG TABLET PO SCH (22:07)
[2020-07-15] MEDS ORDERED: DIVALPROEX SODIUM 125 MG TABLET E.C. ONE (22:10)
[2020-07-15] MEDS ORDERED: HEPARIN NA (PORCINE) 5,000 UNITS/ML 1ML VIAL ONE (22:10)
[2020-07-15] MEDS: HEPARIN NA (PORCINE) 5,000 UNITS/ML 1ML VIAL SQ SCH (22:26)
[2020-07-15] MEDS: traZODone HCL 100 MG TABLET (FP) PO SCH (22:26)
[2020-07-15] MEDS: DIVALPROEX SODIUM 250 MG TABLET E.C. PO SCH (22:26)
[2020-07-16] MEDS ORDERED: FUROSEMIDE 40 MG/4 ML INJECTABLE VIAL IVPB SCH (06:00)
[2020-07-16] MEDS: INSULIN SLIDING SCALE (NOVOLOG) 1 VIAL SQ SCH ×4 (06:15→21:15)
[2020-07-16 07:47] LABS: BASO % 0.5 % (0-2.0); EOS % 0.5 % (0-4.5); HEMOGLOBIN 13.5 GM/dL (11.7-16.9); LYMPH % 19.3 % (8-40); MCH 31.1 pg (25.7-33.7); MCHC 33.9 g/dl (32.0-35.9); MEAN CELL VOLUME 91.8 fl (80-96); MEAN PLT VOLUME 10.6 fl (7.5-11.1); MONO % 9.5 % (3.8-10.2); NEUT % 70.2 % (42.8-82.8); PLATELET COUNT 106 K/MM3 (134-434); RBC 4.35 M/mm3 (4.00-5.60); RDW 13.4 % (11.9-15.9); WHITE BLOOD COUNT 4.7 K/mm3 (4.0-10.0)
[2020-07-16 07:57] LABS: POTASSIUM 4.6 mmol/L (3.5-5.1)
[2020-07-16 08:02] LABS: BLOOD UREA NITROGEN 21.8 mg/dL (7-18)
[2020-07-16 08:03] LABS: CALCIUM 7.9 mg/dL (8.5-10.1); MAGNESIUM 2.1 mg/dL (1.8-2.4)
[2020-07-16 08:05] LABS: BILIRUBIN,TOTAL 0.6 mg/dL (0.2-1); CREATININE 1.3 mg/dL (0.55-1.3)
[2020-07-16 08:06] LABS: TOT PROT 6.9 g/dl (6.4-8.2)
[2020-07-16] MEDS ORDERED: PNEUMOC 13-VAL CONJ-DIP CRM/PF 0.5 ML DISP.SYRIN IM ONE (08:35)
[2020-07-16] MEDS ORDERED: DIVALPROEX SODIUM 250 MG TABLET E.C. PO SCH (10:00)
[2020-07-16] MEDS ORDERED: PT OWN MED DRAWER 7, Y5N ONE ×3 (10:46→13:01)
[2020-07-16] MEDS: QUEtiapine FUMARATE 300 MG TABLET PO SCH ×2 (10:51→21:14)
[2020-07-16] MEDS: DIVALPROEX SODIUM 250 MG TABLET E.C. PO SCH ×2 (10:52→21:14)
[2020-07-16] MEDS: oxyCODONE HCL 5 MG TABLET PO PRN ×2 (10:52→21:17)
[2020-07-16] MEDS: ASPIRIN COATED 81 MG TABLET.EC PO SCH (10:53)
[2020-07-16] MEDS: HEPARIN NA (PORCINE) 5,000 UNITS/ML 1ML VIAL SQ SCH (10:53)
[2020-07-16 12:52] LABS: EPI CELLS 4 /uL (0-25.1); HYALINE CASTS 1 /uL (0-3.1); PH,URINE 5.5 (5.0-8.0); URINE APPEARANCE CLEAR; URINE BACTERIA 6 /uL (0-1359); URINE BILIRUBIN NEGATIVE (NEGATIVE); URINE COLOR DK YELLOW; URINE GLUCOSE (UA) 2+ (NEGATIVE); URINE KETONE NEGATIVE (NEGATIVE); URINE LEUK ESTERASE NEGATIVE (NEGATIVE); URINE NITRITE NEGATIVE (NEGATIVE); URINE PROTEIN 1+ (NEGATIVE); URINE RBC 7 /uL (0-23.9); URINE WBC 4 /uL (0-25.8)
[2020-07-16] MEDS: ENOXAPARIN NA (PORCINE) 120 MG/0.8 ML DISP.SYRIN SQ SCH (13:05)
[2020-07-16] MEDS: risperiDONE 1 MG TABLET PO SCH (13:06)
[2020-07-16] MEDS: traZODone HCL 100 MG TABLET (FP) PO SCH (21:14)
[2020-07-16] MEDS: INSULIN (LEVEMIR) 100 UNITS/ML UNITS SQ SCH (21:15)
[2020-07-17] MEDS: ENOXAPARIN NA (PORCINE) 120 MG/0.8 ML DISP.SYRIN SQ SCH ×2 (00:05→12:26)
[2020-07-17] MEDS: INSULIN SLIDING SCALE (NOVOLOG) 1 VIAL SQ SCH ×4 (06:40→21:24)
[2020-07-17] MEDS: oxyCODONE HCL 5 MG TABLET PO PRN ×2 (06:42→17:55)
[2020-07-17] MEDS ORDERED: INSULIN (LEVEMIR) 100 UNITS/ML UNITS SQ SCH (07:00)
[2020-07-17 07:56] LABS: POTASSIUM 4.2 mmol/L (3.5-5.1)
[2020-07-17 08:01] LABS: CALCIUM 8.1 mg/dL (8.5-10.1)
[2020-07-17 08:02] LABS: ALBUMIN 2.9 g/dl (3.4-5.0); BLOOD UREA NITROGEN 12.7 mg/dL (7-18)
[2020-07-17 08:06] LABS: TOT PROT 6.5 g/dl (6.4-8.2)
[2020-07-17 08:07] LABS: BILIRUBIN,TOTAL 0.5 mg/dL (0.2-1)
[2020-07-17] MEDS: DIVALPROEX SODIUM 250 MG TABLET E.C. PO SCH ×2 (09:44→21:23)
[2020-07-17] MEDS: QUEtiapine FUMARATE 300 MG TABLET PO SCH ×2 (09:44→21:23)
[2020-07-17] MEDS: ASPIRIN COATED 81 MG TABLET.EC PO SCH (09:44)
[2020-07-17] MEDS: risperiDONE 1 MG TABLET PO SCH (10:41)
[2020-07-17 14:15] VITALS: BMI 41.0
[2020-07-17] MEDS: traZODone HCL 100 MG TABLET (FP) PO SCH (21:23)
[2020-07-17] MEDS: INSULIN (LEVEMIR) 100 UNITS/ML UNITS SQ SCH (21:24)
[2020-07-18] MEDS ORDERED: PT OWN MED DRAWER 7, Y5N ONE ×4 (00:07→14:55)
[2020-07-18] MEDS: oxyCODONE HCL 5 MG TABLET PO PRN ×4 (00:08→22:09)
[2020-07-18] MEDS: ENOXAPARIN NA (PORCINE) 120 MG/0.8 ML DISP.SYRIN SQ SCH ×2 (00:08→13:28)
[2020-07-18] MEDS: INSULIN SLIDING SCALE (NOVOLOG) 1 VIAL SQ SCH ×4 (06:14→22:05)
[2020-07-18] MEDS: INSULIN (LEVEMIR) 100 UNITS/ML UNITS SQ SCH ×2 (06:14→22:05)
[2020-07-18] MEDS: QUEtiapine FUMARATE 300 MG TABLET PO SCH ×2 (10:23→22:05)
[2020-07-18] MEDS: risperiDONE 1 MG TABLET PO SCH (10:23)
[2020-07-18] MEDS: ASPIRIN COATED 81 MG TABLET.EC PO SCH (10:24)
[2020-07-18] MEDS: DIVALPROEX SODIUM 250 MG TABLET E.C. PO SCH ×2 (10:24→22:05)
[2020-07-18 17:38] LABS: POTASSIUM 4.5 mmol/L (3.5-5.1)
[2020-07-18 17:40] LABS: CALCIUM 8.7 mg/dL (8.5-10.1)
[2020-07-18 17:41] LABS: ALBUMIN 3.2 g/dl (3.4-5.0); BLOOD UREA NITROGEN 14.5 mg/dL (7-18)
[2020-07-18 17:44] LABS: BASO % 1.1 % (0-2.0); EOS % 1.5 % (0-4.5); HEMATOCRIT 43.3 % (35.4-49); HEMOGLOBIN 14.8 GM/dL (11.7-16.9); LYMPH % 36.3 % (8-40); MCH 30.9 pg (25.7-33.7); MCHC 34.1 g/dl (32.0-35.9); MEAN CELL VOLUME 90.6 fl (80-96); MEAN PLT VOLUME 10.1 fl (7.5-11.1); MONO % 9.4 % (3.8-10.2); NEUT % 51.7 % (42.8-82.8); PLATELET COUNT 144 K/MM3 (134-434); RBC 4.78 M/mm3 (4.00-5.60); RDW 13.8 % (11.9-15.9); WHITE BLOOD COUNT 4.3 K/mm3 (4.0-10.0)
[2020-07-18 17:46] LABS: TOT PROT 7.2 g/dl (6.4-8.2)
[2020-07-18] MEDS: APIXABAN 5 MG TABLET PO SCH (22:05)
[2020-07-18] MEDS: traZODone HCL 100 MG TABLET (FP) PO SCH (22:05)
[2020-07-19] MEDS: INSULIN (LEVEMIR) 100 UNITS/ML UNITS SQ SCH (06:18)
[2020-07-19] MEDS: INSULIN SLIDING SCALE (NOVOLOG) 1 VIAL SQ SCH ×3 (07:15→17:08)
[2020-07-19] MEDS ORDERED: PT OWN MED DRAWER 7, Y5N ONE (09:45)
[2020-07-19] MEDS: APIXABAN 5 MG TABLET PO SCH (10:46)
[2020-07-19] MEDS: DIVALPROEX SODIUM 250 MG TABLET E.C. PO SCH (10:46)
[2020-07-19] MEDS: ASPIRIN COATED 81 MG TABLET.EC PO SCH (10:47)
[2020-07-19] MEDS: QUEtiapine FUMARATE 300 MG TABLET PO SCH (10:47)
[2020-07-19] MEDS: risperiDONE 1 MG TABLET PO SCH (10:47)
[2020-07-19 14:29] VITALS: BP 142/74; PULSE 84; TEMP 97.3
== END 2020-07-19 17:43 | disposition home or self-care (01) | DRG 176 ==
LOC: JER 10:29 → JERBED 15:45 → J4S 07-16 04:56
PROVIDERS: ADMIT Family Medicine; ATTEND Family Medicine
DX: I26.99 Other pulmonary embolism without acute cor pulmonale (principal); I82.4Z1 Acute embolism and thrombosis of unspecified deep veins of right distal lower extremity; N17.9 Acute kidney failure, unspecified; I24.8 Other forms of acute ischemic heart disease; Z68.41 Body mass index [BMI] 40.0-44.9, adult; E11.9 Type 2 diabetes mellitus without complications; I10 Essential (primary) hypertension; G47.33 Obstructive sleep apnea (adult) (pediatric); F31.9 Bipolar disorder, unspecified; J44.9 Chronic obstructive pulmonary disease, unspecified; I25.10 Atherosclerotic heart disease of native coronary artery without angina pectoris; E11.42 Type 2 diabetes mellitus with diabetic polyneuropathy; W19.XXXA Unspecified fall, initial encounter; G25.81 Restless legs syndrome; R77.8 Other specified abnormalities of plasma proteins; F17.210 Nicotine dependence, cigarettes, uncomplicated; E66.01 Morbid (severe) obesity due to excess calories; R26.81 Unsteadiness on feet; K21.9 Gastro-esophageal reflux disease without esophagitis
CPT/HCPCS: 36415; 70450-TC; 71045-TC-FY; 71275-TC; 80053; 81003; 82962; 83036; 83605; 83735; 83880; 84443; 84484; 85025; 85610; 85730; 87040; 87086; 93005; 93010; 93306-TC; 93970-TC; 97116-GP; 97161-GP; 99285-25; C9803; J1644; J2794; Q9967; U0003

== ENCOUNTER 2023-10-10 14:13 | Observation (INO) | payer OTHER ==
[2023-10-10 15:28] LABS: BASO % 0.8 % (0-2.0); EOS % 1.1 % (0-4.5); HEMATOCRIT 43.7 % (35.4-49); LYMPH % 19.1 % (8-40); MCHC 34.3 g/dl (32.0-35.9); MEAN CELL VOLUME 90.5 fl (80-96); MEAN PLT VOLUME 9.3 fl (7.5-11.1); MONO % 4.3 % (3.8-10.2); NEUT % 74.7 % (42.8-82.8); PLATELET COUNT 193 10^3/uL (134-434); RBC 4.83 M/mm3 (4.00-5.60); RDW 13.4 % (11.9-15.9); WHITE BLOOD COUNT 8.4 K/mm3 (4.0-10.0)
[2023-10-10 15:41] LABS: POTASSIUM 4.3 mmol/L (3.5-5.1)
[2023-10-10 15:42] LABS: CALCIUM 8.5 mg/dL (8.5-10.1)
[2023-10-10 15:43] LABS: BLOOD UREA NITROGEN 15.8 mg/dL (7-18); MAGNESIUM 1.7 mg/dL (1.8-2.4)
[2023-10-10 15:46] LABS: CREATININE 1.1 mg/dL (0.55-1.3); INR 1.16 (0.83-1.09); PROTHROMBIN TIME (PATIENT) 13.4 SEC (9.7-13.0)
[2023-10-10 15:48] LABS: BILIRUBIN,TOTAL 0.4 mg/dL (0.2-1); TOT PROT 6.7 g/dl (6.4-8.2)
[2023-10-10 15:49] LABS: ACTIVATED PTT 35.9 SECONDS (25.2-36.5)
[2023-10-10] MEDS ORDERED: MAGNESIUM 1GM/D5W - 1 GM/100 ML IVPB IVPB ONE (18:48)
[2023-10-10] MEDS: MAGNESIUM 1GM/D5W - 1 GM/100 ML IVPB IVPB ONE (18:57)
[2023-10-10 19:12] LABS: PH,URINE 5.5 (5.0-8.0); URINE APPEARANCE CLEAR; URINE BILIRUBIN NEGATIVE (NEGATIVE); URINE COLOR YELLOW; URINE GLUCOSE (UA) NEGATIVE (NEGATIVE); URINE KETONE NEGATIVE (NEGATIVE); URINE LEUK ESTERASE NEGATIVE (NEGATIVE); URINE NITRITE NEGATIVE (NEGATIVE); URINE PROTEIN TRACE (NEGATIVE)
[2023-10-10] MEDS ORDERED: ACETAMINOPHEN INJECTION 100 ML IVPB ONE (19:53)
[2023-10-10] MEDS: ACETAMINOPHEN 1000 MG/100 ML BAG IVPB ONE (19:59)
[2023-10-10] MEDS ORDERED: QUEtiapine FUMARATE 100 MG TABLET (FP) ONE (20:17)
[2023-10-10] MEDS: QUEtiapine FUMARATE 300 MG TABLET PO ONE (20:44)
[2023-10-10] MEDS ORDERED: QUEtiapine FUMARATE 100 MG TABLET (FP) PO SCH (20:45)
[2023-10-10] MEDS: INSULIN ASPART SLIDING SCALE (NOVOLOG) 1 VIAL SQ SCH (22:57)
[2023-10-10] MEDS: ATORVASTATIN CA 80 MG TABLET (FP) PO SCH (22:58)
[2023-10-10] MEDS: ZOLPIDEM TARTRATE 5 MG TABLET PO PRN (22:59)
[2023-10-10] MEDS ORDERED: traZODone HCL 50 MG TABLET (FP) ONE (23:14)
[2023-10-10] MEDS: QUEtiapine FUMARATE 100 MG TABLET (FP) PO SCH (23:15)
[2023-10-10] MEDS: traZODone HCL 100 MG TABLET (FP) PO ONE (23:15)
[2023-10-10] MEDS: morphine SULFATE 4 MG/ML VIAL IVPUSH ONE (23:16)
[2023-10-10] MEDS: GABAPENTIN 300 MG CAPSULE PO ONE (23:16)
[2023-10-11 00:13] VITALS: BMI 40.9
[2023-10-11] MEDS: APIXABAN 5 MG TABLET PO SCH (00:17)
[2023-10-11] MEDS: GABAPENTIN 300 MG CAPSULE PO SCH (06:51)
[2023-10-11] MEDS: INSULIN (LEVEMIR) 100 UNITS/ML UNITS SQ SCH (06:51)
[2023-10-11 07:20] LABS: BASO % 0.5 % (0-2.0); EOS % 2.2 % (0-4.5); HEMATOCRIT 40.7 % (35.4-49); HEMOGLOBIN 14.2 GM/dL (11.7-16.9); LYMPH % 29.4 % (8-40); MCH 31.5 pg (25.7-33.7); MEAN CELL VOLUME 90.1 fl (80-96); MEAN PLT VOLUME 9.8 fl (7.5-11.1); MONO % 5.7 % (3.8-10.2); NEUT % 62.2 % (42.8-82.8); PLATELET COUNT 202 10^3/uL (134-434); RBC 4.52 M/mm3 (4.00-5.60); RDW 13.5 % (11.9-15.9); WHITE BLOOD COUNT 7.3 K/mm3 (4.0-10.0)
[2023-10-11 07:36] LABS: POTASSIUM 4.4 mmol/L (3.5-5.1)
[2023-10-11 07:43] LABS: CALCIUM 8.6 mg/dL (8.5-10.1)
[2023-10-11 07:44] LABS: BLOOD UREA NITROGEN 18.8 mg/dL (7-18)
[2023-10-11 07:47] LABS: CREATININE 1.1 mg/dL (0.55-1.3)
[2023-10-11] MEDS: METOPROLOL TARTRATE 50 MG TABLET (FP) PO SCH (09:34)
[2023-10-11] MEDS: LOSARTAN POTASSIUM 50 MG TABLET PO SCH (09:34)
[2023-10-11] MEDS: risperiDONE 1 MG TABLET PO SCH (09:34)
[2023-10-11] MEDS: FUROSEMIDE 40 MG/4 ML INJECTABLE VIAL IVPUSH SCH (09:34)
[2023-10-11] MEDS: ASPIRIN COATED 81 MG TABLET.EC PO SCH (09:35)
[2023-10-11] MEDS: INSULIN ASPART SLIDING SCALE (NOVOLOG) 1 VIAL SQ SCH (11:56)
[2023-10-11] MEDS: LORazepam 1 MG TABLET PO PRN (15:21)
[2023-10-11 15:55] VITALS: RESP 18
[2023-10-11] MEDS: UMECLIDINIUM/VILANTEROL (ANORO) 62.5/25 MCG INHALER IH SCH (18:19)
[2023-10-11] MEDS ORDERED: oxyCODONE HCL 5 MG TABLET PO PRN (20:53)
[2023-10-11] MEDS: traZODone HCL 100 MG TABLET (FP) PO SCH (21:06)
[2023-10-11] MEDS: clonazePAM 0.25 MG ODT TABLETS SL SCH (21:10)
[2023-10-12] MEDS: INSULIN (LEVEMIR) 100 UNITS/ML UNITS SQ SCH (06:41)
[2023-10-12 08:56] VITALS: TEMP 98.8
[2023-10-12] MEDS ORDERED: REGADENOSON 0.4 MG/5 ML PRE-FILLED SYRINGE IVPUSH ONE (09:43)
[2023-10-12] MEDS ORDERED: clonazePAM 0.5 MG TABLET PO SCH (10:56)
[2023-10-12] MEDS: REGADENOSON 0.4 MG/5 ML PRE-FILLED SYRINGE IVPUSH ONE (11:45)
[2023-10-12] MEDS: clonazePAM 0.5 MG TABLET PO SCH (13:48)
[2023-10-12 16:22] VITALS: BP 130/95; PULSE 82
== END 2023-10-12 17:00 | disposition home or self-care (01) ==
LOC: JER 14:13 → INTOOBSV 19:50 → JERBED 19:50 → J4W 21:30
PROVIDERS: ADMIT Internal Medicine; ATTEND Family Medicine
PROC: 3E033NZ Introduction of Analgesics, Hypnotics, Sedatives into Peripheral Vein, Percutaneous Approach (ICD-10-PCS; principal; 2023-10-10)
PROC: 3E033GC Introduction of Other Therapeutic Substance into Peripheral Vein, Percutaneous Approach (ICD-10-PCS; 2023-10-10)
PROC: 3E013VG Introduction of Insulin into Subcutaneous Tissue, Percutaneous Approach (ICD-10-PCS; 2023-10-10)
PROC: 3E033GC Introduction of Other Therapeutic Substance into Peripheral Vein, Percutaneous Approach (ICD-10-PCS; 2023-10-10)
PROC: 3E033NZ Introduction of Analgesics, Hypnotics, Sedatives into Peripheral Vein, Percutaneous Approach (ICD-10-PCS; 2023-10-10)
DX: I25.10 Atherosclerotic heart disease of native coronary artery without angina pectoris (principal); I11.0 Hypertensive heart disease with heart failure; G47.33 Obstructive sleep apnea (adult) (pediatric); M35.1 Other overlap syndromes; M54.50 Low back pain, unspecified; K21.9 Gastro-esophageal reflux disease without esophagitis; F31.9 Bipolar disorder, unspecified; J44.9 Chronic obstructive pulmonary disease, unspecified; I50.9 Heart failure, unspecified; Z86.711 Personal history of pulmonary embolism; W18.39XA Other fall on same level, initial encounter; E66.9 Obesity, unspecified; Y93.89 Activity, other specified; Y92.230 Patient room in hospital as the place of occurrence of the external cause; S09.90XA Unspecified injury of head, initial encounter; G89.29 Other chronic pain; Z88.8 Allergy status to other drugs, medicaments and biological substances
CPT/HCPCS: 0241U-QW; 36415; 70450-TC; 71045-TC-FY; 71275-TC; 78452-TC; 80048; 80053; 81003; 82962; 83036; 83735; 83880; 84443; 84484; 85025; 85610; 85730; 87086; 93005; 93010; 93017; 93306-TC; 93971-TC; 96365; 96372; 96374; 96375; 99285-25; A9502; G0378; J0131; J2785; Q9967